=== PATIENT | male | born 1970 | race Caucasian/White ===

== ENCOUNTER 2025-06-02 09:09 | Outpatient (AMB) | payer BC, SELFPAY ==
--- NOTE | 2025-06-02 09:27 | MHC.PC.OV ---
Vital Signs 06/02/25 09:36 06/02/25 10:13 Height 5 ft 10 in Weight 158 lb BMI 22.7 BP 162/100 H 160/92 H Blood Pressure Location Rt brachial Position Sitting Pulse 88 Pulse Source Pulse Oximeter Temp 98.1 F Temp Source Temporal Artery Scan Pulse Oximetry (%) 98 Oxygen Delivery Method Room Air Intake Visit Reasons: Est. Care / Diabetic Intake Note: Abraham presents in the office today to establish care. Allergies Penicillins Allergy (Verified 06/02/25 09:29) Rash Tobacco use date assessed: 06/02/25 Dental Screening Dental Screen Date: 06/02/25 Did you have a dental visit in the last 12 months?: No Did you have a dental problem in the last 6 months where you did not have access to dental care?: No Was dental information given to patient?: Patient declined HPI HPI Comments History of Present Illness Details This is a 55 year old male with a pmhx of Type II Diabetes presenting to establish care. Medical records unavailable at this time. He is accompanied by his , Michaelle. They were in April. Type II DM-He was diagnosed after being hospitalized at [facility] for 13 days due to ?bacteremia in the setting of a right great toe infection after cutting his foot on glass. His A1C at diagnosis was 11.6%. He has been on Basaglar since that time and stopped drinking soda and eats heatlhy. He is currently on 12 units nightly, and his A1C is 7%. Past medications: none. His father had Type II DM. Patient reports he was tested for Type I DM, and this evaluation was negative. Denies hypoglycemia. He does not have a CGM, but he is not interested in this right now. He is compliant with glucose monitoring. He is a nonsmoker and doesn't drink alcohol. Complications: neuropathy in his feel. He sees podiatry, Dr. Pham. He just saw him due to an ulcer on the right foot. He is applying antibiotic ointment and bandaging this. Denies fevers, chills, drainage, swelling. He had an eye exam, and is was recommended that he see a retinal specialist for evaluation. Elevated blood pressure-denies history of hypertension. He thinks this may be related to anxiety as he drove through a lot of traffic to get here and had coffee this morning. He received the tetanus shot in May 2023. He declined Colonoscopy. Cologuard ordered. When we spoke about this he reported a 20 year history of dysphagia with starchy foods. He's never had an EGD. No progression of symptoms. Denies regurgitation, weight loss, nausea, vomiting. ROS: Constitutional: No unexplained weight loss, fever, chills, fatigue or night sweats. Eyes: No vision changes, blurry vision, double vision Respiratory: No shortness of breath, cough or sputum production. Cardiovascular: No chest pain, chest pressure or chest discomfort. No palpitations or pedal edema. Gastrointestinal: No anorexia, nausea, vomiting or diarrhea. No abdominal pain or blood in stool. Genitourinary: No dysuria, hematuria, urinary frequency. Neurologic: No headache, dizziness, syncope, unilateral weakness, ataxia or seizures. Skin: see HPI Endocrine: No cold or heat intolerance. No polyuria or polydipsia. Physical exam: Constitutional: Alert, in no distress. Neck: Supple, Full range of motion. No lymphadenopathy. No palpable thyroid masses. Respiratory: Clear to auscultation. Cardiovascular: S1 S2 regular. No murmurs. Gastrointestinal: Abdomen soft, non-tender, non-distended. Normal bowel sounds. No palpable masses. Neurologic: No focal neurological deficits. Extremities: Warm and well perfused. No clubbing, cyanosis or edema. Intact peripheral pulses bilaterally. Dime-sized stage 2/3 ulcer on the ball of the right foot superimposed on a callus. No discharge, edema or surrounding erythema to suggest cellulitis. [facility] Medical History (Updated 06/03/25 @ 19:21 by RONALD Roberson) Dysphagia Anemia Diabetic ulcer of right foot, limited to breakdown of skin Elevated blood pressure reading Controlled type 2 diabetes mellitus Amputated toe of right foot Diabetes Family History (Updated 06/02/25 @ 09:35 by Tori Mehta MA) Mother Lung cancer Father Diabetes Congestive heart failure FHx: mental illness Dementia Social History (Updated 06/02/25 @ 09:36 by Tori Mehta MA) Housing: House Alcohol intake: never Patient Tobacco Use Status: Never used Tobacco Tobacco use type: Smokeless Tobacco e-Cigarette/Vaping Use: Never Used Second Hand Smoke Exposure: No service: No Current occupational status: employed 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 1. Little interest or pleasure in doing things: not at all 2. Feeling down, depressed, or hopeless: not at all 3. Trouble falling or staying asleep, or sleeping too much: not at all 4. Feeling tired or having little energy: not at all 5. Poor appetite or overeating: not at all 6. Feeling bad about yourself - or that you are a failure or have let yourself or your family down: not at all 7. Trouble concentrating on things, such as reading the newspaper or watching television: not at all 8. Moving or speaking so slowly that other people could have noticed. Or the opposite - being so fidgety or restless that you have been moving around a lot more than usual: not at all 9. Thoughts that you would be better off or of hurting yourself in some way: not at all Total score: 0 Depression Screening Interpretation: Negative Depression Screening Done: Yes 67682 - PHQ-9 Billing: Yes Source: Developed by Drs. Ahmet Perez, Ijeoma Ramos, Niko Nguyen and colleagues, with an educational madison from [employer]. Thrive Questionnaire Date Thrive assessed: 06/02/25 I am a: Patient What is your living situation today?: I have a steady place to live Within the past 12 months, did the food you bought not last and you didn't have the money to get more?: Never true Within the past 12 months, did you worry whether your food would run out before you got money to buy more?: Never true Do you have trouble paying for medicines?: No Do you have trouble getting transportation to medical appointments?: No Do you have trouble paying your heating and electricity bill?: No Do you have trouble taking care of your child, family member or friend?: No Do you have trouble with day-to-day activities such as bathing, preparing meals, shopping, managing finances, etc.?: No Are you currently unemployed and looking for a job?: No Are you interested in more education?: No Please select the resources that you would like help with: None Currently or been in a relationship where the following occur: No concerns reported THRIVE Score: 0 AUDIT C Alcohol Use Questionnaire (AUDIT-C) 1. How often do you have a drink containing alcohol?: Never 3. How often do you have six or more drinks on one occasion?: Never Total Score: 0 MIRNA-7 AMB Questionnaire MIRNA-7 Date MIRNA - 7 assessed: 06/02/25 Feeling nervous, anxious, or on edge: 0 = Not at all Not being able to stop or control worryin = Not at all Worrying too much about different things: 0 = Not at all Trouble relaxin = Not at all Being so restless that it is hard to sit still: 0 = Not at all Becoming easily annoyed or irritable: 0 = Not at all Feeling afraid as if something awful might happen: 0 = Not at all Total MIRNA-7 score (0-4 normal; 5-9 mild; 10-14 moderate; 15-21 severe): 0 Source: Developed by Drs. Ahmet Perez, Ijeoma Ramos, Niko Nguyen and colleagues, with an educational madison from [employer]. MIRNA-7 Assessment Billing MIRNA-7 Assessment Tool: MIRNA-7 Assessment 20308 Physical exam (Primary Care) Vital Signs: Last Vital Signs Temp 98.1 F 06/02/25 09:36 Pulse 88 06/02/25 09:36 BP 160/92 H 06/02/25 10:13 Pulse Ox 98 06/02/25 09:36 Oxygen Delivery Method Room Air 06/02/25 09:36 BMI result Body Mass Index 22.7 Tobacco/Smoking Status: Tobacco use Status Tobacco use date assessed 06/02/25 06/02/25 09:41 Patient Tobacco Use Status Never used Tobacco 06/02/25 09:41 Tobacco use type Smokeless Tobacco 06/02/25 09:41 e-Cigarette/Vaping Use Never Used 06/02/25 09:41 PHQ-9: PHQ-9 Score PHQ-9: Total score 0 06/03/25 17:09 Depression Screening Interpretation: Negative Thrive Assessment: Date of Thrive Assessment Date Thrive assessed 06/02/25 06/02/25 09:29 Currently or been in a relationship where the following occur: No concerns reported Results AMB Hemoglobin A1c AMB Hemoglobin A1c 7.0 % Last Edit by Tori Mehta MA on 06/02/25 09:54 Results Reviewed Results Reviewed: Laboratory Last Values Hgb A1c (Clinic) 7.0 % (4.0-6.0) H 06/02/25 09:47 Coding Level of Care Code New Pt Level 4 (53956) Complex EM visit Add On G2211 Diagnoses Controlled type 2 diabetes mellitus E11.9 Elevated blood pressure reading R03.0 Diabetic ulcer of other part of right foot associated with type 2 diabetes mellitus, limited to breakdown of skin E11.621; L97.511 Diabetic foot ulcer location: other Diabetes mellitus type: type 2 Oropharyngeal dysphagia R13.12 Dysphagia type: oropharyngeal phase Additional Codes MIRNA-7 Assessment Billing - MIRNA-7 Assessment Tool: MIRNA-7 Assessment 79375 ([id number]) PHQ-9 - 96689 - PHQ-9 Billing: Yes ([id number]) Assessment & Plan Assessment & Plan (1) Controlled type 2 diabetes mellitus: Code(s): E11.9 - Type 2 diabetes mellitus without complications Category: Medical Plan: Discussed pathophysiology of Type II Diabetes Mellitus with the patient in detail.? I explained the terminal carman risks and complications associated with uncontrolled diabetes including nephropathy, neuropathy, peripheral vascular disease, retinopathy, increased risk of heart disease and stroke.? Discussed lifestyle modification with the patient. Recommended 30 minutes of moderately vigorous exercise 5 days per week to promote weight loss. Start Mounjaro 2.5 mg weekly and decrease Basalgar to 6 units daily. Plan to titrate Mounjaro and discontinue Basaglar at a future date. Denies contraindications to GLP1. Side effects reviewed. Declined CGM. Bring glucomter to appointments. Reviewed treatment of hypoglycemia. Glucose tablets prescribed. (2) Elevated blood pressure reading: Code(s): R03.0 - Elevated blood-pressure reading, without diagnosis of hypertension Category: Medical Plan: Recommended low sodium diet and avoidance of caffeine. Prescribed BP cuff. Bring log to next visit. (3) Diabetic ulcer of right foot, limited to breakdown of skin: Code(s): E11.621 - Type 2 diabetes mellitus with foot ulcer; L97.511 - Non-pressure chronic ulcer of other part of right foot limited to breakdown of skin Category: Medical Qualifiers: Diabetic foot ulcer location: other Diabetes mellitus type: type 2 Qualified Code(s): E11.621 - Type 2 diabetes mellitus with foot ulcer; L97.511 - Non-pressure chronic ulcer of other part of right foot limited to breakdown of skin Plan: He will schedule a follow up with podiatry. I referred him to Dr. 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 Continue dressing changes and application of antibiotic ointment. Monitor for signs of infection. Referred to the wound care clinic. (4) Dysphagia: Code(s): R13.10 - Dysphagia, unspecified Category: Medical Qualifiers: Dysphagia type: oropharyngeal phase Qualified Code(s): R13.12 - Dysphagia, oropharyngeal phase Plan: Referred to gastroenterology. Check labs. Plan Follow up in 1 month. Orders: Orders AMB Hemoglobin A1c 06/02/25 Z13.9 - Encounter for screening, unspecified TSH reflex Free T4 06/02/25 E11.9 - Type 2 diabetes mellitus without complications Prostate Specific Antigen 06/02/25 E11.9 - Type 2 diabetes mellitus without complications, Z12.5 - Encounter for screening for malignant neoplasm of prostate Comprehensive Met. Panel 06/02/25 E11.9 - Type 2 diabetes mellitus without complications Complete Blood Count no Diff 06/02/25 E11.9 - Type 2 diabetes mellitus without complications Lipid Panel 06/02/25 E11.9 - Type 2 diabetes mellitus without complications, E78.5 - Hyperlipidemia, unspecified Microalbumin, Random (w Creat) 06/02/25 E11.9 - Type 2 diabetes mellitus without complications Referrals Wound Care Referral E11.621 - Type 2 diabetes mellitus with foot ulcer, L97.511 - Non-pressure chronic ulcer of other part of right foot limited to breakdown of skin Podiatry Referral E11.621 - Type 2 diabetes mellitus with foot ulcer, E11.9 - Type 2 diabetes mellitus without complications, L97.511 - Non-pressure chronic ulcer of other part of right foot limited to breakdown of skin Cologuard Test Z12.11 - Encounter for screening for malignant neoplasm of colon Gastroenterology Referral D64.9 - Anemia, unspecified, R13.10 - Dysphagia, unspecified Medications: New insulin glargine (Basaglar KwikPen U-100 Insulin) 12 units (0.12 mL) subcut QPM 15 mL 2RF tirzepatide (Mounjaro) for 4 weeks 2.5 mg (0.5 mL) subcut QWEEK 2 mL 0RF pen needle, diabetic As directed 100 ea 2RF miscellaneous medical supply (Blood Pressure Cuff) As directed 1 ea 0RF R03.0 - Elevated blood-pressure reading, without diagnosis of hypertension glucose (Dex4 Glucose Quick Dissolve) until symptoms of low blood sugar are controlled 16 grams (4 x 4 gram) PO Q15M PRN 10 tabs 3RF hypoglycemia Patient Instructions: If you experience low blood sugar (<70), treat this by eating a chewable fruit candy like skittles or jelly beans (about 8 pieces), 4 ounces (1/2 cup) of fruit juice (not diet), 1 tablespoon of honey or 4 glucose tablets. If your blood sugar is under 55, take double the amount of one of the above. Recheck your blood sugar in 15 minutes. When you start Mounjaro 2.5 mg weekly, decrease insulin to 6 units nightly. If you have low blood sugars stop insulin.
--- OUTSIDE RECORDS SUMMARY | 2025-06-02 09:35 | XMS_ITS | Clinical Summary ---
Author Organization [facility] Address [address] [place] [address] Care Team Providers Care Facilities Officer Name Role Phone Ahmet Garcia MD Primary Care Provider [phone] Surgical History Surgery Date Site/Laterality Comments TOE AMPUTATION 06/03/2023 Right PROCEDURE:TOE AMPUTATION;COMMENT:Procedure: PARTIAL 1ST RAY AMPUTATION, I AND D; Surgeon: Carmelo Pham DPM; Location: [facility] MAIN OPERATING ROOM; Service: Podiatry; Laterality: Right; SAG SAW, MINI C ARM, 10MIN OSTECTOMY 06/12/2023 Right PROCEDURE:OSTECTOMY METATARSAL;COMMENT:Procedure: OSTECTOMY METATARSAL; Surgeon: Carmelo Pham DPM; Location: [facility] MAIN OPERATING ROOM; Service: Podiatry; Laterality: Right; SAG SAW, MINI C ARM, 15M Medical History Medical History Date Comments Diabetes mellitus (CMS/HCC V 24, CMS/HCC V28) 05/27/2023 DX:Diabetes mellitus (HCC) Seizures (CMS/HCC V24, CMS/HCC V28) DX:Seizures (HCC);COMMENT:06/09/23: over 12 years ago Visual impairment DX:Visual impa irment Diabetes mellitus, type II ( CMS/HCC V24, CMS/HCC V28) DX:Diabetes mellitus, type I I (HCC) Family History Medical History Relation Name Comments Diabetes Father Heart attack Father Kidney disease Father CKD Lung cancer Mother Relation Name Status Comments Father Alive Mother Social History Tobacco Use Types Packs/Day Years Used Date Smoking Tobacco: Former Smokeless Tobacco: Current Alcohol Use Standard Drinks/Week Comments Not Currently 0 (1 standard drink = 0.6 oz pur e alcohol) Sex and Gender Information Value Date Recorded Sex Assigned at Not on file Legal Sex Male 8:21 PM EST Gender Identity Not on file Sexual Orientation Not on file Obstetrics History Plan of Treatment Health Maintenance Due Date Last Done Comments Diabetes: Annual Foot Exam 1980 Diabetes: Annual Retina Eye Exam 1980 DTaP,Tdap,and Td Vaccines (1 - Tdap) 1989 Hepatitis B Vaccines (1 of 3 - 19+ 3-dose series) 1989 Pneumococcal Vaccine: 50+ Years (1 of 1 - PCV) 2020 Zoster Vaccines (1 of 2) 2020 Colorectal Cancer Screening: Colonoscopy 12/18/2023 Depression Screening 12/18/2023 HIV Screening 12/18/2023 Hepatitis C Screening 12/18/2023 Social Influencers of Health Screening 12/18/2023 Diabetes: Annual Urine Albumin-Creatinine Ratio (uACR) 01/08/2024 Diabetes: Blood Sugar Control Test (HGBA1C) 07/22/2024 01/22/2024, 01/22/2024, 07/31/2023, Additional history exists COVID-19 Vaccine ( - season) 2024 Diabetes: Annual GFR (Glomerular Filtration Rate) 01/21/2025 01/22/2024, 01/22/2024, 07/31/2023, Additional history exists Influenza Vaccine (#1) 2025 Cholesterol Screening (Lipid Panel) 01/21/2029 01/22/2024, 01/22/2024, 07/31/2023 HIB Vaccines Aged Out No longer eligi ble based on patient's age to complete this topic HPV Vaccines Aged Out No longer eligi ble based on patient's age to complete this topic Hepatitis A Vaccines Aged Out No long er eligible based on patient's age to complete this topic IPV Vaccines Aged Out No longer eligi ble based on patient's age to complete this topic MMR Vaccines Aged Out No longer eligi ble based on patient's age to complete this topic Meningococcal ACWY Vaccine Aged Out N o longer eligible based on patient's age to complete this topic Meningococcal B Vaccine Aged Out No l onger eligible based on patient's age to complete this topic RSV Immunization Patients Under 20 months Aged Out No longer eligible based on patient's age to complete this topic Varicella Vaccines Aged Out No longer eligible based on patient's age to complete this topic Medical Devices Implanted Type Area Civil Engineer'S Aide Device Identifier Shelf Expiration Date Model / Serial / Lot Hemostat Surg Ah Ana 3gm [id number] Implanted:Qty: 1 on 06/03/2023 by Carmelo Pham DPM Implants Right: Foot CR [employer]ARD - [employer] DIV [address]/21/[address] / / [id number] Care Teams Facilities Officer Relationship Specialty Start Date End Date Ahmet Garcia MD [address] [place] [address] PCP - General 06/12/23
--- OUTSIDE RECORDS SUMMARY | 2025-06-02 09:35 | XMS_ITS | Clinical Summary ---
Author Organization [facility] Address [address] [place] [address] Care Team Providers Care Oxidized Finish Plater Name Role Phone Ahmet Garcia MD Primary Care Provider Kirstie diaz Allergies Active Allergy Reactions Criticality Noted Date Comments Penicillins Hives 05/28/2023 Medications Medication Sig Dispensed Refills Start Date End Date Status Blood Glucose Monitoring Suppl (FreeStyle Lite) PITA Check your blood sugar at least twice a day. 1 each 0 06/05/2023 Active glucose blood (FREESTYLE LITE) test strip Check your blood sugar at least twice a day 100 each 5 06/05/2023 Active Lancets (freestyle) lancets Check your blood sugar at least twice a day 100 each 06/05/2023 Active oxyCODONE (ROXICODONE) 5 MG immediate release tablet Take 1 tablet (5 mg total) by mouth every 6 (six) hours as needed for up to 20 doses. 20 tablet 0 06/05/2023 Active Additional Information Patient not taking.Reason: Other, Reported on 06/09/2023 oxyCODONE-acetamino phen (PERCOCET) 5-325 MG per tablet Take 1 tablet by mouth every 4 (four) hours as needed for pain. 30 tablet 0 06/12/2023 Active Active Problems Problem Noted Date Diagnosed Date Open wound of right foot 06/06/2023 Overview: Added automatically from request for surgery [id number] Osteomyelitis of great toe of right foot 023 Osteomyelitis 05/31/2023 Gangrene 05/30/2023 Overview: Added automatically from request for surgery [id number] Acute osteomyelitis of right ankle or foot 05/30 Overview: Added automatically from request for surgery [id number] Cellulitis of right foot 05/27/2023 Diabetes mellitus, new onset 05/27/2023 Sepsis 05/27/2023 Family History Medical History Relation Name Comments Diabetes Father Heart attack Father Kidney disease Father CKD Lung cancer Mother Relation Name Status Comments Father Alive Mother Social History Tobacco Use Types Packs/Day Years Used Date Smoking Tobacco: Former Cigarettes Passive Smoke Exposure: Never Smokeless Tobacco: Current Chew Tobacco Cessation:Ready to Q uit: Not Asked; Counseling Given: Not Answered Alcohol Use Standard Drinks/Week Comments Not Currently 0 (1 standard drink = 0.6 oz pur e alcohol) sober since 2010 Sex and Gender Information Value Date Recorded Sex Assigned at Male 05/27/2023 11:12 AM EDT Gender Identity Not on file Sexual Orientation Not on file Job Start Date Occupation Industry Not on file Not on file Not on file Last Filed Vital Signs Vital Sign Reading Time Taken Comments Blood Pressure 169/94 06/12/2023 12:36 PM EDT Pulse 84 06/12/2023 12:36 PM EDT Temperature 36.2 C (97.1 F) 06/12/2023 12:26 PM EDT Respiratory Rate 16 06/12/2023 12:36 PM EDT Oxygen Saturation 99% 06/12/2023 12:36 PM EDT Inhaled Oxygen Concentration - - Weight 65.8 kg (145 lb) 06/09/2023 1:46 PM EDT Height 172.7 cm (5' 8 ) 06/09/2023 1:46 PM EDT Body Mass Index 22.05 06/09/2023 1:46 PM EDT Plan of Treatment Health Maintenance Due Date Last Done Comments Hepatitis B Vaccines (1 of 3 - 3-dose series) 1970 Hepatitis C Screening 1970 COVID-19 Vaccine (#1) 1970 Pneumococcal Vaccine (1 of 2 - PCV) 1976 Depression Screening 1982 Preventative Health Evaluation 1988 DTap / Tdap / Td (1 - Tdap) 1989 Colon Cancer Screening (Colonoscopy) 2015 Shingrix-Zoster Vaccine (1 of 2) 2020 Influenza Vaccine (#1) 2025 RSV Ped < 20 months Aged Out No longe r eligible based on patient's age to complete this topic Medical Devices Implanted Type Area Molded Rubber Goods Cutter Device Identifier Shelf Expiration Date Model / Serial / Lot Hemostat Surg Ah Ana 3gm [id number] - [id number] Implanted:Qty : 1 on 06/03/2023 by Carmelo Pham DPM at [facility] Hemostatic Agent Right: Foot [employer] 01/21/2028 [id number] / / [id number] Advance Directives For more information, please contact: [phone] Latest Code Status on File Code Status Date Activated Date Inactivated Comments Full Code 06/12/2023 8:46 AM 06/12/2023 7:04 PM This code status was ascertained in the following way: discussion with patient . Code Status History Code Status Date Activated Date Inactivated Comments Full Code 05/30/2023 7:47 PM 06/05/2023 11:34 PM This code status was ascertained in the following way: discussion with patient . Full Code 05/27/2023 5:50 PM 05/30/2023 6:54 PM This co de status was ascertained in the following way: discussion with patient. Care Teams Oxidized Finish Plater Relationship Specialty Start Date End Date hAmet Garcia MD PCP - General Family Medicine 06/12/23
[2025-06-02 09:36] VITALS: BP 162/100; PULSE 88; TEMP 36.7; O2SAT 98; BMI 22.7
[2025-06-02 10:13] VITALS: BP 160/92
== END 2025-06-02 10:26 | disposition home or self-care (01) ==
LOC: HO.HMCFM 09:10
PROVIDERS: PCP Family Medicine; Visit Provider Physician Assistant Medical
DX: Z13.9 Encounter for screening, unspecified (principal)

== ENCOUNTER → 2025-06-02 09:09 | Outpatient (BNVA) | payer BC, SELFPAY | PROVIDERS: PCP Family Medicine; Visit Provider Physician Assistant Medical | DX: E11.621 Type 2 diabetes mellitus with foot ulcer (principal); L97.511 Non-pressure chronic ulcer of other part of right foot limited to breakdown of skin; R03.0 Elevated blood-pressure reading, without diagnosis of hypertension; R13.12 Dysphagia, oropharyngeal phase; Z79.4 Long term (current) use of insulin | CPT/HCPCS: 83036; 96127 ==

== ENCOUNTER 2025-06-02 10:46 | Outpatient (REF) | payer BC, SELFPAY ==
--- OUTSIDE RECORDS SUMMARY | 2025-06-02 11:27 | XMS_ITS ---
Author Name [facility] Organization Unknown Results Test Name/Text Value Interpretation Date Range Source LDLc SerPl Calc-mCnc 75.0 mg/dL Normal 01/22/2024 50 - 13 0 [facility] CHOLEST SERPL-MCNC 135.0 mg/dL Normal 01/22/2024 0 - 200 [facility] TRIGL SERPL-MCNC 86.0 mg/dL Normal 01/22/2024 - 150 C [facility] HDLC SERPL-MCNC 43.0 mg/dL Normal 01/22/2024 32 - 70 [facility] Hgb A1c MFr Bld HPLC 7.0 % Above high normal 01/22/2024 - 5.7 [facility] CALCIUM SERPL MCNC 10.2 mg/dL Normal 01/22/2024 8.4 - 10. 2 [facility] AST SERPL CCNC 18.0 U/L Normal 01/22/2024 5 - 40 [facility] BUN SERPL MCNC 35.0 mg/dL Above high normal 01/22/2024 9 - 2 0 [facility] ALBUMIN SERPL BCG MCNC 4.8 g/dL Normal 01/22/2024 3.5 - 5 [facility] ALT SERPL CCNC 14.0 U/L Normal 01/22/2024 7 - 52 [facility] BILIRUB SERPL MCNC 0.4 mg/dL Normal 01/22/2024 0.3 - 1 [facility] GLUCOSE P FAST SERPL MCNC 185.0 mg/dL Above high normal 01/22/2024 70 - 99 [facility] ANION GAP SERPL SCNC 11.0 mmol/L Normal 01/22/2024 5 - 14 [facility] SODIUM SERPL SCNC 136.0 mmol/L Normal 01/22/2024 135 - 14 5 [facility] PROT SERPL MCNC 8.0 g/dL Normal 01/22/2024 6.4 - 8.5 [facility] POTASSIUM SERPL SCNC 4.3 mmol/L Normal 01/22/2024 3.5 - 5 .1 [facility] CREAT SERPL MCNC 1.6 mg/dL Above high normal 01/22/2024 0.7 - 1.3 [facility] CHLORIDE SERPL SCNC 101.0 mmol/L Normal 01/22/2024 98 - 1 07 [facility] HCO3 SER SCNC 24.0 mmol/L Normal 01/22/2024 24 - 32 [facility] Glomerular filtration rate/1.73 sq M. predicted 51.0 Below low normal 01/22/2024 60 - [facility] ALP SERPL-CCNC 49.0 U/L Normal 01/22/2024 34 - 104 [facility] Allergies Allergen Reaction Severity Comment Documented Date Source Statu s PENICILLINS HIVES 05/28/2023 [facility] active Problems Problem Status Onset Date Problem Type Date of Resolution Source Diabetes mellitus, new onset active 2023-05-27 ProblemAct [facility] Cellulitis of right foot active 2023-05-27 ProblemAct [facility] Type 2 diabetes mellitus with diabetic neuropathy, unspecified (HCC) active EncounterDiagnosisAct C [facility] Osteomyelitis of great toe of right foot active 2023-06-01 ProblemAct [facility] Gangrene active 2023-05-30 ProblemAct [facility] Sepsis active 2023-05-27 ProblemAct [facility] Open wound of right foot active 2023-06-06 ProblemAct [facility] Type 2 diabetes mellitus with hyperglycemia (HCC) active EncounterDiagnosisAct [facility] Acute osteomyelitis of right ankle or foot active 2023-05-30 ProblemAct [facility] Encounters Encounter Type Encounter Reason Primary Diagnosis Location Date Ambulatory [facility], [facility] 03/04/2025 Ambulatory [facility], [facility] 02/25/2025 Ambulatory [facility], [facility] 02/20/2025 Ambulatory Type 2 diabetes mellitus with hyperglycemia Type 2 diabetes mellitus with hyperglycemia [facility] 01/22/2024 Ambulatory Type 2 diabetes mellitus with hyperglycemia Type 2 diabetes mellitus with hyperglycemia [facility] 07/31/2023 Ambulatory Unspecified open wound, right foot, subsequent encounter Unspecified open wound, right foot, subsequent encounter [facility] 06/12/2023 Inpatient Gangrene, not elsewhere classified Gangrene, not elsewhere classified [facility] 05/30/2023 Inpatient Cellulitis of right lower limb Cellulitis of right lower limb [facility] 05/27/2023 Care Team Organization Name Specialty Phone Email Start Date End Bryant whipple [facility], [facility] 02/22/2025 [facility] Ahmet Garcia Primary Care 05/202307/31/2023 [facility] 3 05/30/2023 [facility] 05/30/2023 [facility] 05/27/2023 070 02/2023
[2025-06-02 16:25] LABS: Hematocrit 31.2 % (42.0-52.0); Hemoglobin 10.8 g/dl (14.0-18.0); Mean Corpuscular HGB Conc 34.6 g/dl (31.0-36.0); Mean Corpuscular Hemoglobin 31.2 pg (27.0-33.0); Mean Corpuscular Volume 90.2 fL (80.0-98.0); NRBC Abs Auto 0.000 X10*3/uL (0.0-0.012); NRBC Pct Auto 0.0 /100WBC (0.0-0.2); Platelet Count 302 X10*3/uL (160-400); Red Blood Count 3.46 X10*6/uL (4.60-5.80); White Blood Count 7.9 X10*3/uL (4.8-10.8)
[2025-06-02 16:33] LABS: Prostate Specific Antigen 1.36 ng/mL (<0.05-4.0)
[2025-06-02 16:52] LABS: Alanine Aminotransferase 19 U/L (0-40); Albumin Level 4.1 g/dL (3.5-5.0); Alkaline Phosphatase 75 U/L (39-117); Anion Gap 13 (12-20); Aspartate Amino Transferase 32 U/L (5-37); Blood Urea Nitrogen 21 mg/dL (9-16); Calcium 9.2 mg/dL (8.4-10.2); Carbon Dioxide 24 mmol/L (22-29); Chloride 107 mmol/L (96-108); Cholesterol 159 mg/dL (<200); Estimated Glomerular Filt Rate > 60; HDL Cholesterol 41 mg/dL (>40); Potassium 4.5 mmol/L (3.3-5.1); Sodium 139 mmol/L (135-145); Total Protein 7.4 g/dL (6.5-8.0); Triglycerides 68 mg/dL (<150)
[2025-06-02 17:05] LABS: Microalbum/Creatinine Ratio Ur 1233.6 ug/mg cr (<30)
== END 2025-06-02 10:47 | disposition home or self-care (01) ==
LOC: HO.WFDLDS 10:46
PROVIDERS: Visit Provider Physician Assistant Medical
DX: E11.9 Type 2 diabetes mellitus without complications (principal); E78.5 Hyperlipidemia, unspecified; Z13.9 Encounter for screening, unspecified; Z12.5 Encounter for screening for malignant neoplasm of prostate
CPT/HCPCS: 36415; 80053; 80061; 82043; 82570; 84153; 84443; 85027

== ENCOUNTER 2025-07-14 14:50 | Outpatient (AMB) | payer BC, SELFPAY ==
--- OUTSIDE RECORDS SUMMARY | 2025-07-14 14:54 | XMS_ITS | Encounter Summary ---
Author Organization [facility] Address [address] [place] [address] Care Team Providers Care Mountain Bike Guide Name Role Phone DontrellKeara barrios Helen CARDENAS Primary Care Provider [phone] Reason for Visit * Reason Onset Date Comments information needed 07/08/2025 Encounter Details Date Type Department Care Team ([facility] Contact Info) Description 07/08/2025 Telephone Gastroenterology - [place] [address] [facility] [address] [facility] [address] [place] [address] Be Mariano MD [address] [facility] [address] [place] [address] information needed Social History Tobacco Use Types Packs/Day Years Used Date Smoking Tobacco: Former Smokeless Tobacco: Current Alcohol Use Standard Drinks/Week Comments Not Currently 0 (1 standard drink = 0.6 oz pur e alcohol) Sex and Gender Information Value Date Recorded Sex Assigned at Not on file Legal Sex Male 8:21 PM EST Gender Identity Not on file Sexual Orientation Not on file documented as of this encounter Progress Notes * Shantal Garcia - 07/13/2025 1:45 PM EDT Records received, still missing insurance referral. Faxed & placed in missing folder. * Jada Brambila - 07/08/2025 1:09 PM EDT Received referral from [facility] for a colonoscopy, but only a positive cologuard report was received. Missing last OV notes, allergy list & med list. Faxed back to office and placed in MISSING accordion folder documented in this encounter Plan of Treatment Not on file documented as of this encounter Visit Diagnoses Not on filedocumented in this encounter Care Teams Mountain Bike Guide Relationship Specialty Start Date End Date Keara Jon PA [address] [place] [address] PCP - General Physician Handle Rounder Operator 06/16/25 documented as of this encounter
--- OUTSIDE RECORDS SUMMARY | 2025-07-14 14:54 | XMS_ITS | Clinical Summary ---
Author Organization [facility] Address [address] [place] [address] Care Team Providers Care Video Coordinator Name Role Phone Ahmet Garcia MD Primary [...] Overview: Added automatically from request for surgery [id number] Osteomyelitis of great toe of right foot 023 Osteomyelitis 05/31/2023 Gangrene 05/30/2023 Overview: Added automatically from request for surgery [id number] Acute osteomyelitis of right ankle or foot 05/30 Overview: Added automatically from request for surgery [id number] Cellulitis of right foot 05/27/2023 Diabetes mellitus, [...] this topic Medical Devices Implanted Type Area Linux Kernel Developer Device Identifier Shelf Expiration Date Model / Serial / Lot Hemostat Surg Ah Ana 3gm Crba-Davl [id number] - [id number] Implanted:Qty : 1 on 06/03/2023 by Carmelo Pham DPM at [facility] and Med Hemostatic Agent Right: Foot CR BARD - DAVOL DIV 01/21/2028 [id number] / / [id number] Advance Directives For more information, please contact: [phone] Latest Code Status on File Code Status [...] following way: discussion with patient. Care Teams Video Coordinator Relationship Specialty Start Date End Date Ahmet Garcia MD PCP - General Family Medicine 06/12/23
--- NOTE | 2025-07-14 15:10 | A.OFFPC_ITS ---
Vital Signs 07/14/25 15:18 07/14/25 15:45 07/14/25 16:03 Height 5 ft 10 in Weight 162 lb 4 oz BMI 23.3 BP 190/90 H 190/90 H 179/88 H Blood Pressure Location Lt brachial Lt brachial Position Sitting Sitting Pulse 88 Pulse Source Pulse Oximeter Temp 98.3 F Temp Source Temporal Artery Scan Pulse Oximetry (%) 100 Oxygen Delivery Method Room Air Intake Visit Reasons: DM follow up Intake Note: Abraham presents in the office today for a follow up to his diabetes. Allergies Penicillins Allergy (Verified 07/14/25 15:16) Rash lisinopril Adverse Reaction (Intermediate, Verified 07/14/25 15:16) Cough Medication List - Last Reconciled 07/15/25 by RONALD Roberson ferrous sulfate 325 mg PO DAILY glucose (Dex4 Glucose Quick Dissolve) 16 grams (4 x 4 gram) PO Q15M PRN insulin glargine (Lantus Solostar U-100 Insulin) 12 units subcut QPM losartan 25 mg PO DAILY miscellaneous medical supply (Blood Pressure Cuff) As directed pen needle, diabetic As directed pen needle, diabetic As directed rosuvastatin 10 mg PO BEDTIME tirzepatide (Mounjaro) 2.5 mg (0.5 mL) subcut QWEEK Tobacco use date assessed: 07/14/25 Dental Screening Dental Screen Date: 07/14/25 Did you have a dental visit in the last 12 months?: No Did you have a dental problem in the last 6 months where you did not have access to dental care?: No Was dental information given to patient?: Patient declined HPI HPI Comments History of Present Illness Details This is a 55 year old male with a pmhx of Type II Diabetes presenting for follow up. He is accompanied by his , Michaelle. Type II DM- Taking Lantus 12 units daily. Hemoglobin A1c is 7% 06/02/2025. Mounjaro prescribed, and it was approved, but the pharmacy needs a new prescription. He has not been able to start it yet. He was diagnosed after being hospitalized at [facility] for 13 days due to ?bacteremia in the setting of a right great toe infection after cutting his foot on glass. His A1C at diagnosis was 11.6%. His father had Type II DM. Patient reports he was tested for Type I DM, and this evaluation was negative. Denies hypoglycemia. He does not have a CGM, but he is not interested in this right now. He is compliant with glucose monitoring. He is a nonsmoker and doesn't drink alcohol. Complications: neuropathy in his feel. He sees podiatry, Dr. Pham. He just saw him due to an ulcer on the right foot. He is applying antibiotic ointment and bandaging this. Denies fevers, chills, drainage, swelling. He had an eye exam, and is was recommended that he see a retinal specialist for evaluation. I referred him to Wound Care, and he needs to return their phone call to set up the appointment. Patient has microalbuminuria. Elevated blood pressure-denies history of hypertension. Patient feels anxious today as we are discussing abnormal results including Cologuard. They started monitoring blood pressure at home, and the readings were under 130/90 most of the time. BP initially 190/90 today and decrease to 179/88. Denies headache, chest pain, dizziness, vision changes, leg swelling. He started lisinopril, but it was discontinued due to cough. He has not started losartan yet, but he is going to pick it up today. Anemia-found incidentally on blood work. Reported 20 year history of dysphagia with starchy foods at his initial visit. He has never had an EGD, and he was due for colonoscopy. Denied progressively worsening dysphagia, regurgitation, weight loss, nausea or vomiting. Endorses chronic cough after eating. Subsequently patient has positive Cologuard testing, and he was referred urgently to [facility], but after 6 phone call attempts he has not been able to schedule a visit. ROS: Constitutional: No unexplained weight loss, fever, chills, fatigue or night sweats. Eyes: No vision changes, blurry vision, double vision Respiratory: No shortness of breath or sputum production Cardiovascular: No chest pain, chest pressure or chest discomfort. No palpitations or pedal edema. Gastrointestinal: No anorexia, nausea, vomiting or diarrhea. No abdominal pain or blood in stool. Genitourinary: No dysuria, hematuria, urinary frequency. Neurologic: No headache, dizziness, syncope, unilateral weakness, ataxia or seizures. Skin: see HPI Endocrine: No cold or heat intolerance. No polyuria or polydipsia. Physical exam: Constitutional: Alert, in no distress. Neck: Supple, Full range of motion. No lymphadenopathy. No palpable thyroid masses. Respiratory: Clear to auscultation. Cardiovascular: S1 S2 regular. No murmurs. Gastrointestinal: Abdomen soft, non-tender, non-distended. Normal bowel sounds. No palpable masses. Neurologic: No focal neurological deficits. Extremities: Warm and well perfused. No clubbing, cyanosis or edema. Intact peripheral pulses bilaterally. Dime-sized stage 2/3 ulcer on the ball of the right foot superimposed on a callus. No discharge, edema or surrounding erythema to suggest cellulitis. [facility] Medical History (Updated 07/15/25 @ 16:50 by RONALD Roberson) Positive colorectal cancer screening using Cologuard test Pure hypercholesterolemia Microalbuminuria Dysphagia Anemia Diabetic ulcer of right foot, limited to breakdown of skin Elevated blood pressure reading Controlled type 2 diabetes mellitus Amputated toe of right foot Diabetes Family History Mother Lung cancer Father Diabetes Congestive heart failure FHx: mental illness Dementia Social History (Updated 07/14/25 @ 15:18 by Tori Mehta MA) Housing: House Alcohol intake: never Patient Tobacco Use Status: Never used Tobacco Tobacco use type: Smokeless Tobacco e-Cigarette/Vaping Use: Never Used Second Hand Smoke Exposure: No service: No Current occupational status: employed 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 [employer] Current occupational exposures/hazards: No Cognitive needs: No Hearing needs: No Vision needs: No Questionnaire Thrive Questionnaire Date Thrive assessed: 06/02/25 I am a: Patient What is your living situation today?: I have a steady place to live Within the past 12 months, did the food you bought not last and you didn't have the money to get more?: Never true Within the past 12 months, did you worry whether your food would run out before you got money to buy more?: Never true Do you have trouble paying for medicines?: No Do you have trouble getting transportation to medical appointments?: No Do you have trouble paying your heating and electricity bill?: No Do you have trouble taking care of your child, family member or friend?: No Do you have trouble with day-to-day activities such as bathing, preparing meals, shopping, managing finances, etc.?: No Are you currently unemployed and looking for a job?: No Are you interested in more education?: No Please select the resources that you would like help with: None Currently or been in a relationship where the following occur: No concerns reported THRIVE Score: 0 AUDIT C Alcohol Use Questionnaire (AUDIT-C) 3. How often do you have six or more drinks on one occasion?: Never Total Score: 0 MIRNA-7 AMB Questionnaire MIRNA-7 Date MIRNA - 7 assessed: 06/02/25 Source: Developed by Drs. Ahmet Perez, Ijeoma Ramos, Niko Nguyen and colleagues, with an educational madison from [employer]. Physical exam (Primary Care) Vital Signs: Last Vital Signs Temp 98.3 F 07/14/25 15:18 Pulse 88 07/14/25 15:18 BP 179/88 H 07/14/25 16:03 Pulse Ox 100 07/14/25 15:18 Oxygen Delivery Method Room Air 07/14/25 15:18 BMI result Body Mass Index 23.3 Tobacco/Smoking Status: Tobacco use Status Tobacco use date assessed 07/14/25 07/14/25 15:22 Patient Tobacco Use Status Never used Tobacco 07/14/25 15:18 Tobacco use type Smokeless Tobacco 07/14/25 15:18 e-Cigarette/Vaping Use Never Used 07/14/25 15:18 Thrive Assessment: Date of Thrive Assessment Date Thrive assessed 06/02/25 07/14/25 15:12 Currently or been in a relationship where the following occur: No concerns reported Results Reviewed Results Reviewed: Laboratory Tests 06/02/25 06/02/25 06/02/25 09:47 10:49 10:56 WBC 7.9 RBC 3.46 L Hgb 10.8 L Hct 31.2 L Plt Count 302 Creatinine 1.18 Estimated GFR > 60 Hgb A1c (Clinic) 7.0 H AST 32 ALT 19 Triglycerides 68 Cholesterol 159 LDL Cholesterol, Calc 105 H HDL Cholesterol 41 Prostate Specific Ag 1.36 TSH 0.69 Urine Creatinine 43.69 Urine Microalbumin 539.0 Microalb/Creat Ratio 1233.6 H Coding Level of Care Code Est Pt Level 4 (51846) Complex EM visit Add On G2211 Diagnoses Controlled type 2 diabetes mellitus E11.9 Elevated blood pressure reading R03.0 Diabetic ulcer of other part of right foot associated with type 2 diabetes mellitus, limited to breakdown of skin E11.621; L97.511 Diabetic foot ulcer location: other Diabetes mellitus type: type 2 Oropharyngeal dysphagia R13.12 Dysphagia type: oropharyngeal phase Anemia D64.9 Anemia type: iron deficiency Positive colorectal cancer screening using Cologuard test R19.5 Pure hypercholesterolemia E78.00 Assessment & Plan Assessment & Plan (1) Controlled type 2 diabetes mellitus: Code(s): E11.9 - Type 2 diabetes mellitus without complications Category: Medical Plan: Discussed pathophysiology of Type II Diabetes Mellitus with the patient in detail.? I explained the termite control service representative risks and complications associated with uncontrolled diabetes including nephropathy, neuropathy, peripheral vascular disease, retinopathy, increased risk of heart disease and stroke.? Discussed lifestyle modification with the patient. Recommended 30 minutes of moderately vigorous exercise 5 days per week to promote weight loss. Start Mounjaro 2.5 mg weekly and decrease Lantus to 6 units daily. Plan to titrate Mounjaro and discontinue Basaglar at a future date. Denies contraindications to GLP1. Side effects reviewed. Declined CGM. Bring glucomter to appointments. Reviewed treatment of hypoglycemia. (2) Elevated blood pressure reading: Code(s): R03.0 - Elevated blood-pressure reading, without diagnosis of hypertension Category: Medical Plan: Patient endorses anxiety. Recommended low sodium diet and avoidance of caffeine. Bring BP log to next visit. Start losartan 25 mg daily. (3) Diabetic ulcer of right foot, limited to breakdown of skin: Code(s): E11.621 - Type 2 diabetes mellitus with foot ulcer; L97.511 - Non-pressure chronic ulcer of other part of right foot limited to breakdown of skin Category: Medical Qualifiers: Diabetic foot ulcer location: other Diabetes mellitus type: type 2 Qualified Code(s): E11.621 - Type 2 diabetes mellitus with foot ulcer; L97.511 - Non-pressure chronic ulcer of other part of right foot limited to breakdown of skin Plan: He will schedule a follow up with podiatry. I referred him to Dr. 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 Continue dressing changes and application of antibiotic ointment. Monitor for signs of infection. Call [facility] back to schedule visit. (4) Dysphagia: Code(s): R13.10 - Dysphagia, unspecified Category: Medical Qualifiers: Dysphagia type: oropharyngeal phase Qualified Code(s): R13.12 - Dysphagia, oropharyngeal phase (5) Anemia: Code(s): D64.9 - Anemia, unspecified Category: Medical Qualifiers: Anemia type: iron deficiency (6) Positive colorectal cancer screening using Cologuard test: Code(s): R19.5 - Other fecal abnormalities Category: Medical Plan: Patient is referred urgently to [facility] today for consideration of EGD and colonoscopy. Recheck labs for anemia. Start iron if indicated. Check pancreatic enzymes. Warning signs warranting ER evaluation reviewed with the patient. Avoid NSAIDs and aspirin. (7) Pure hypercholesterolemia: Code(s): E78.00 - Pure hypercholesterolemia, unspecified Category: Medical Plan: Reviewed LDL goal with the patient. Start rosuvastatin 10 mg at bedtime. Side effects and administration reviewed. Plan Follow up in 2-3 weeks for recheck. Orders: Orders Lipase Today D64.9 - Anemia, unspecified, E11.9 - Type 2 diabetes mellitus without complications Amylase Today D64.9 - Anemia, unspecified, E11.9 - Type 2 diabetes mellitus without complications Referrals Gastroenterology Referral D64.9 - Anemia, unspecified, R13.12 - Dysphagia, oropharyngeal phase, R19.5 - Other fecal abnormalities Medications: New rosuvastatin 10 mg PO BEDTIME 90 tabs 3RF Changed From insulin glargine (Lantus Solostar U-100 Insulin) 6 units (0.06 mL) subcut QPM 3 mL 3RF To insulin glargine (Lantus Solostar U-100 Insulin) 12 units subcut QPM Refilled tirzepatide (Mounjaro) for 4 weeks 2.5 mg (0.5 mL) subcut QWEEK 2 mL 0RF
[2025-07-14 15:18] VITALS: BP 190/90; PULSE 88; TEMP 36.8; O2SAT 100; BMI 23.3
[2025-07-14 15:45] VITALS: BP 190/90
[2025-07-14 16:03] VITALS: BP 179/88
== END 2025-07-14 16:09 | disposition home or self-care (01) ==
LOC: HO.HMCFM 14:51
PROVIDERS: PCP Physician Assistant Medical; Visit Provider Physician Assistant Medical
DX: R03.0 Elevated blood-pressure reading, without diagnosis of hypertension (principal); E11.621 Type 2 diabetes mellitus with foot ulcer; L97.511 Non-pressure chronic ulcer of other part of right foot limited to breakdown of skin; R13.12 Dysphagia, oropharyngeal phase; D64.9 Anemia, unspecified; R19.5 Other fecal abnormalities; E78.00 Pure hypercholesterolemia, unspecified

== ENCOUNTER 2025-07-15 12:32 | Outpatient (REF) | payer BC, SELFPAY ==
--- OUTSIDE RECORDS SUMMARY | 2025-07-15 12:34 | XMS_ITS | Encounter Summary ---
Author Organization [facility] Address [address] [place] [address] Care Team Providers Care Life Skills Worker Name Role Phone DontrellKeara barrios Helen CARDENAS Primary Care Provider [phone] Reason for Visit * Reason Onset Date Comments information needed 07/08/2025 Encounter Details Date Type Department Care Team ([facility] Contact Info) Description 07/08/2025 Telephone Gastroenterology - [place] [address] [facility] [address] [facility] [address] [place] [address] Be Mariano MD [address] [place] [address] information needed Social History Tobacco Use Types [...] 07/08/2025 1:09 PM EDT Received referral from [facility] for a colonoscopy, but only a positive cologuard report was received. Missing last OV notes, allergy list & med list. Faxed back to office and placed in MISSING accordion folder documented in this encounter Plan of Treatment Not on file documented as of this encounter Visit Diagnoses Not on filedocumented in this encounter Care Teams Life Skills Worker Relationship Specialty Start Date End Date Keara Jon PA [address] [place] [address] PCP - General Physician Concrete Inspector 06/16/25 documented as of this encounter
--- OUTSIDE RECORDS SUMMARY | 2025-07-15 12:34 | XMS_ITS | Clinical Summary ---
Author Organization [facility] Address [address] [place] [address] Care Team Providers Care Database Security Expert Name Role Phone Ahmet Garcia MD Primary [...] Overview: Added automatically from request for surgery [id number] Osteomyelitis of great toe of right foot 023 Osteomyelitis 05/31/2023 Gangrene 05/30/2023 Overview: Added automatically from request for surgery [id number] Acute osteomyelitis of right ankle or foot 05/30 Overview: Added automatically from request for surgery [id number] Cellulitis of right foot 05/27/2023 Diabetes mellitus, [...] this topic Medical Devices Implanted Type Area Autocad Draftsman Device Identifier Shelf Expiration Date Model / Serial / Lot Hemostat Surg Ah Ana 3gm Crba-Davl [id number] - [id number] Implanted:Qty : 1 on 06/03/2023 by Carmelo Pham DPM at [facility] and Med Hemostatic Agent Right: Foot CR BARD - DAVOL DIV 01/21/2028 [id number] / / [id number] Directives For more information, please contact: [phone] Latest Code Status on File Code Status [...] following way: discussion with patient. Care Teams Database Security Expert Relationship Specialty Start Date End Date Ahmet Garcia MD PCP - General Family Medicine 06/12/23
[2025-07-15 16:03] LABS: MANUAL DIFF FLAG NO
[2025-07-15 16:13] LABS: Hematocrit 28.4 % (42.0-52.0); Hemoglobin 9.3 g/dl (14.0-18.0); Imm Gran Abs Auto 0.03 X10*3/uL (0.00-0.03); Imm Gran Pct Auto 0.3 % (0.0-0.4); Lymphocytes Absolute Auto 1.9 X10*3/uL (1.2-4.9); Mean Corpuscular HGB Conc 32.7 g/dl (31.0-36.0); Mean Corpuscular Hemoglobin 30.3 pg (27.0-33.0); Mean Corpuscular Volume 92.5 fL (80.0-98.0); NRBC Abs Auto 0.000 X10*3/uL (0.0-0.012); NRBC Pct Auto 0.0 /100WBC (0.0-0.2); Platelet Count 392 X10*3/uL (160-400); Red Blood Count 3.07 X10*6/uL (4.60-5.80); White Blood Count 10.6 X10*3/uL (4.8-10.8)
[2025-07-15 16:31] LABS: Amylase 43 U/L (28-100); Iron 40 mcg/dL (45-160); Lipase 17 U/L (8-78); Percent Iron Saturation 21 % (15-50); Total Iron Binding Capacity 189 mcg/dL (228-428); Unsaturated Iron Binding 149 ug/dL
[2025-07-15 16:51] LABS: Ferritin 167 ng/mL (20-250)
[2025-07-15 17:09] LABS: Folate 9.3 ng/mL (> or = 4.0); Vitamin B12 308 pg/mL (200-900)
== END 2025-07-15 12:33 | disposition home or self-care (01) ==
LOC: HO.WFDLDS 12:32
PROVIDERS: Visit Provider Physician Assistant Medical
DX: E11.9 Type 2 diabetes mellitus without complications (principal); E78.00 Pure hypercholesterolemia, unspecified; D64.9 Anemia, unspecified; R80.9 Proteinuria, unspecified
CPT/HCPCS: 82150; 82607; 82728; 82746; 83540; 83690; 85025

== ENCOUNTER 2025-07-28 13:30 | Outpatient (AMB) | payer BC, SELFPAY ==
--- NOTE | 2025-07-28 13:36 | A.OFFVIS_ITS ---
Vital Signs 07/28/25 13:41 Height 5 ft 10 in Weight 152 lb 1.903 oz BMI 21.8 BP 204/92 H Blood Pressure Location Lt brachial Position Sitting Pulse 96 Intake Visit Reasons: dysphagia/worsening anemia per pcp Intake Note: Abraham presents in the office as a new patient for Worsening Anemia. CC: States that he was coughing and he thinks it was the lisinipril. It runs in the family that when he eats starch he coughs and sneezes. It has gotten better since started the losartan. Data Conversion Operator Required: No Allergies Penicillins Allergy (Verified 07/28/25 13:42) Rash lisinopril Adverse Reaction (Intermediate, Verified 07/28/25 13:42) Cough Medication List - Last Reconciled 07/28/25 by Meggan Nguyễn CNP ferrous sulfate 325 mg PO DAILY glucose (Dex4 Glucose Quick Dissolve) 16 grams (4 x 4 gram) PO Q15M PRN insulin glargine (Lantus Solostar U-100 Insulin) 6 units subcut QPM losartan 25 mg PO DAILY miscellaneous medical supply (Blood Pressure Cuff) As directed pen needle, diabetic As directed pen needle, diabetic As directed rosuvastatin 10 mg PO BEDTIME tirzepatide (Mounjaro) 2.5 mg (0.5 mL) subcut QWEEK HPI HPI dysphagia/worsening anemia per pcp: Details: Patient is a 55-year-old male with PMH of diabetes, hyperlipidemia and AZAEL. Referred by PCP for positive Cologuard The patient presents due to a positive Cologuard test on June 27, 2025. The patient reports no current gastrointestinal symptoms. Stool patterns are reportedly normal, with daily movements. There is no history of diarrhea, abdominal pain, or noticeable blood in the stool. The patient notes a prior history of constipation when starting insulin two years ago, which resolved without ongoing issues. There is no regular experience of gas, nausea, vomiting, heartburn, or difficulty swallowing. Past nausea was associated with starting Mounjaro, which resolved quickly. The patient reports stable weight with a recent minor, unintentional loss attributed to Mounjaro-induced appetite suppression. The medication history includes treatment for iron deficiency anemia. Elevated blood pressure reading of 155/92 at home and a higher reading of 204 in the clinic today, contributing stress likely exacerbated by office visits. No history of significant heart or lung disease was reported. 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 Reports active physical status at work. - family hx as below -denies personal hx of CA -denies significant cardiopulmonary history -tolerated anesthesia in the past without difficulty. PFS Medical History (Updated 07/28/25 @ 16:26 by Meggan Nguyễn CNP) Hypertension Positive colorectal cancer screening using Cologuard test Pure hypercholesterolemia Microalbuminuria Dysphagia Anemia Diabetic ulcer of right foot, limited to breakdown of skin Elevated blood pressure reading Controlled type 2 diabetes mellitus Amputated toe of right foot Diabetes Family History (Updated 07/28/25 @ 14:15 by Meggan Nguyễn CNP) Mother Lung cancer Father Diabetes Congestive heart failure FHx: mental illness Dementia Colon polyp Social History Housing: House Alcohol intake: never Patient Tobacco Use Status: Never used Tobacco Tobacco use type: Smokeless Tobacco e-Cigarette/Vaping Use: Never Used Second Hand Smoke Exposure: No service: No Current occupational status: employed 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 Current occupational exposures/hazards: No Cognitive needs: No Hearing needs: No Vision needs: No Review of Systems Const Reports as per HPI ENT Reports as per HPI Card Reports as per HPI Resp Reports as per HPI GI Reports as per HPI Reports as per HPI Physical Exam Vital Signs: Last Vital Signs Pulse 96 07/28/25 13:41 BP 204/92 H 07/28/25 13:41 BMI result Body Mass Index 21.8 Const General: healthy appearing, no acute distress and well developed Nutritional Appearance: average body habitus Orientation/consciousness: patient oriented x3 HEENT Other: Jaw asymmetry noted (left side appears more sunken), possibly due to habitual chewing Head: Yes normocephalic and Yes atraumatic Face and sinus: Yes normal facial exam Eyes General: appearance normal, both eyes and all related structures Neck Neck: Yes normal visual inspection Resp Effort & Inspection: normal respiratory effort, able to speak in complete sentences, no tracheal deviation and symmetric chest movement Auscultation: clear to auscultation bilaterally Cardio Jugular venous distension: no JVD Rate: regular rate Rhythm: regular rhythm Heart sounds: S1 normal heart sound present, S2 normal heart sound present, no gallops and no murmurs GI Inspection: Yes normal to inspection and No distended Palpation (GI): Soft to palpation, not firm, nontender and No hepatosplenomegaly present Auscultation: normal bowel sounds Neuro General: patient oriented x3 Gait exam (Neuro): Normal gait present Psych Appearance: grossly normal Mental Status: mental status grossly normal Speech and movement: Normal speech and movement present Affect: normal affect Attitude: cooperative Thought process: Normal thought process present Thought content: Normal thought content present Insight: Good insight present (Psych) Judgement: Good judgement present (Psych) Assessment & Plan Assessment & Plan (1) Positive colorectal cancer screening using Cologuard test: Comment: positive Cologuard test on June 27, 2025. Code(s): R19.5 - Other fecal abnormalities Category: Medical Plan: Positive Cologuard test; pending colonoscopy to evaluate for source (e.g., polyps, mass, potential malignancy) Additional Testing: Colonoscopy within 8 weeks to rule out malignancy Medications: -prescriptions for laxative tablets and MiraLax sent to pharmacy; instructions for Gatorade purchase and clear liquid diet given. Lifestyle Recommendations: Maintain fiber intake, hydration, and physical activity; monitor stools for bleeding or changes Education: -on scheduling process, procedure preparation, including avoiding certain foods and ensuring clear liquid intake -Advised on necessity for ride post-procedure due to sedation. Follow-Up: Call if no colonoscopy scheduling within 4 weeks; monitor for concerning symptoms (2) Anemia: Code(s): D64.9 - Anemia, unspecified Category: Medical Qualifiers: Anemia type: iron deficiency Iron deficiency anemia type: unspecified iron deficiency Qualified Code(s): D50.9 - Iron deficiency anemia, unspecified Plan: Lab-confirmed iron deficiency anemia; on oral iron Additional Testing: Monitor CBC, iron studies as indicated Medication Management: Continue oral iron; monitor for GI side effects (constipation) Lifestyle: Emphasize fiber and hydration to counteract iron-induced constipation F/U: Reassess anemia status after colonoscopy and ongoing iron therapy (3) Hypertension: Code(s): I10 - Essential (primary) hypertension Category: Medical Qualifiers: Hypertension type: unspecified Qualified Code(s): I10 - Essential (primary) hypertension Plan: Elevated BP at home and clinic readings; stress a likely factor Additional Testing: Monitor BP at home; follow up with PCP as planned Medication Management: Continue current regimen; adjust based on PCP recommendations Lifestyle Recommendations: Stress moderation, dietary focus on low sodium, regular physical activity Follow-Up: Address BP during the next primary care visit on Friday Plan Follow-up after endoscopy or sooner as needed Time: I spent a total of 30 minutes on the date of encounter which includes: Preparing to see the patient (reviewed previous documentation, test results and medical history) Performing a medically appropriate exam and/or evaluation Ordering medications, tests, and procedures Documenting clinical information in the health record Medications: New bisacodyl Take per colonoscopy instructions 5 mg PO BID 4 tabs 0RF polyethylene glycol 3350 (Miralax) per colonoscopy prep instructions 238 grams PO ONCE 238 grams 0RF Coding Level of Care Code New Pt New Pt Level 3 (61819) Patient Type New Diagnoses Positive colorectal cancer screening using Cologuard test R19.5 Iron deficiency anemia, unspecified iron deficiency anemia type D50.9 Anemia type: iron deficiency Iron deficiency anemia type: unspecified iron deficiency Hypertension, unspecified type I10 Hypertension type: unspecified
[2025-07-28 13:41] VITALS: BP 204/92; PULSE 96; BMI 21.8
--- OUTSIDE RECORDS SUMMARY | 2025-07-28 14:46 | XMS_ITS | Clinical Summary ---
Author Organization [facility] Address [address] [place] [address] Care Team Providers Care Business Architect Name Role Phone Ahmet Garcia MD Primary [...] Overview: Added automatically from request for surgery [id number] Osteomyelitis of great toe of right foot 023 Osteomyelitis 05/31/2023 Gangrene 05/30/2023 Overview: Added automatically from request for surgery [id number] Acute osteomyelitis of right ankle or foot 05/30 Overview: Added automatically from request for surgery [id number] Cellulitis of right foot 05/27/2023 Diabetes mellitus, [...] this topic Medical Devices Implanted Type Area Administrative Tech Device Identifier Shelf Expiration Date Model / Serial / Lot Hemostat Surg Ah Ana 3gm Crba-Davl [id number] - [id number] Implanted:Qty : 1 on 06/03/2023 by Carmelo Pham DPM at [facility] and Med Hemostatic Agent Right: Foot CR BARD - DAVOL DIV 01/21/2028 [id number] / / [id number] Advance Directives For more information, please contact: [phone] Latest Code Status on File Code Status [...] following way: discussion with patient. Care Teams Business Architect Relationship Specialty Start Date End Date Ahmet Garcia MD PCP - General Family Medicine 06/12/23
--- OUTSIDE RECORDS SUMMARY | 2025-07-28 14:46 | XMS_ITS | Encounter Summary ---
Author Organization [facility] Address [address] [place] [address] Care Team Providers Care Glue Mounter Operator Name Role Phone DontrellKeara cheema Helen CARDENAS Primary Care Provider [phone] Reason for Visit * Reason Onset Date Comments information needed 07/08/2025 Encounter Details Date Type Department Care Team ([facility] Contact Info) Description 07/08/2025 Telephone Gastroenterology - [place] [address] [facility] [address] [place] [address] Be Mariano MD [address] [place] [id number] Social History Tobacco Use Types Packs/Day Years [...] encounter Progress Notes * Shantal Garcia - 07/22/2025 10:20 AM EDT 3rd request faxed for insurance referral * Shantal Garcia - 07/15/2025 1:49 PM EDT 2nd request faxed for insurance referral * Shantal Garcia - 07/13/2025 1:45 PM EDT Records received, still missing insurance referral. Faxed & placed in missing folder. * Jada Brambila - 07/08/2025 1:09 PM EDT Received referral from [facility] for a colonoscopy, but only a positive cologuard report was received. Missing last OV notes, allergy list & med list. Faxed back to office and placed in MISSING accordion folder documented in this encounter Plan of Treatment Not on file documented as of this encounter Visit Diagnoses Not on filedocumented in this encounter Care Teams Glue Mounter Operator Relationship Specialty Start Date End Date Keara Jon PA [address] [place] [address] PCP - General Physician Electrician Radio 06/16/25 documented as of this encounter
--- OUTSIDE RECORDS SUMMARY | 2025-07-28 14:46 | XMS_ITS | Clinical Summary ---
Author Organization [address] [facility] Address [address] [place] [address] Phone Care Team Providers Care Manager Icu Name Role Phone Keara Jon Primary Care Provider [phone] Encounters Date Type Department Care Team Description [facility] [address] [address] Be Mariano MD 06/16/2025 Telephone [facility] 175 [facility] [address] [address] Be Mariano MD from Last 3 Months Surgical History Surgery Date Site/Laterality Comments TOE AMPUTATION 06/03/2023 Right PROCEDURE:TOE AMPUTATION;COMMENT:Procedure: PARTIAL 1ST RAY AMPUTATION, I AND D; Surgeon: Carmelo Pham DPM; Location: [facility] MAIN OPERATING ROOM; Service: Podiatry; Laterality: Right; FANNIE SAW, MINI C ARM, 10MIN OSTECTOMY 06/12/2023 Right PROCEDURE:OSTECTOMY METATARSAL;COMMENT:Procedure: OSTECTOMY METATARSAL; Surgeon: Carmelo Pham DPM; Location: [facility] RO[facility]; Service: Podiatry; Laterality: Right; SAG SAW, MINI C ARM, 15M Medical History Medical History Date Comments Diabetes mellitus (CMS/HCC V 24, CMS/HCC V28) 05/27/2023 DX:Diabetes mellitus (HCC) Seizures (CMS/HCC V24, CMS/HCC V28) DX:Seizures (HCC);COMMENT:06/09/23: over 12 years ago Visual impairment DX:Visual impa irment Diabetes mellitus, type II ( CMS/HCC V24, [facility] V28) DX:Diabetes mellitus, type I I (HCC) [...] 2) 2020 Colorectal Cancer Screening: Colonoscopy 12/18/2023 HIV Screening 12/18/2023 Hepatitis C Screening 12/18/2023 Social Influencers of Health Screening 12/18/2023 Diabetes: Annual Urine Albumin-Creatinine Ratio (uACR) 01/08/2024 Diabetes: Blood Sugar Control Test (HGBA1C) 07/22/2024 01/22/2024, 01/22/2024, 07/31/2023, Additional history exists Depression Screening 11/24/2024 Diabetes: Annual GFR (Glomerular Filtration Rate) 01/21/2025 01/22/2024, 01/22/2024, 07/31/2023, Additional history exists COVID-19 Vaccine ( season) 2025 Influenza Vaccine (#1) 2025 Cholesterol Screening (Lipid [...] this topic Medical Devices Implanted Type Area Territory Sales Representative Device Identifier Shelf Expiration Date Model / Serial / Lot Hemostat Surg Ah Ana 3gm Crba-Davl [id number] Implanted:Qty: 1 on 06/03/2023 by Carmelo Pham DPM Implants Right: Foot CR BARD - [employer] DIV 01/21/[address] / / [id number] Insurance [facility] Care Teams Manager Icu Relationship Specialty Start Date End Date Keara Jon PA [address] [place] [address] PCP - General Physician Blacktop Spreader 06/16/25
== END 2025-07-28 14:29 | disposition home or self-care (01) ==
LOC: HO.HGI 13:31
PROVIDERS: PCP Physician Assistant Medical; Visit Provider Nurse Practitioner Family
DX: R19.5 Other fecal abnormalities (principal); D50.9 Iron deficiency anemia, unspecified; I10 Essential (primary) hypertension
CPT/HCPCS: 99203

== ENCOUNTER 2025-08-01 15:44 | Outpatient (AMB) | payer BC, SELFPAY ==
--- NOTE | 2025-08-01 16:01 | MHC.PC.OV ---
Vital Signs 08/01/25 16:07 Height 5 ft 10 in Weight 155 lb BMI 22.2 BP 148/88 H Blood Pressure Location Rt brachial Position Sitting Respiration 16 Pulse 91 Pulse Source Pulse Oximeter Temp 98.4 F Temp Source Temporal Artery Scan Pulse Oximetry (%) 98 Oxygen Delivery Method Room Air Intake Visit Reasons: BP check Intake Note: Abraham presents in the office today for a follow up to his blood pressure. Allergies Penicillins Allergy (Verified 08/01/25 16:05) Rash lisinopril Adverse Reaction (Intermediate, Verified 08/01/25 16:05) Cough Medication List - Last Reconciled 08/02/25 by RONALD Roberson bisacodyl 5 mg PO BID blood-glucose sensor (Dexcom G7 Sensor device) apply new sensor every 10 days as directed blood-glucose,wire temperer,cont (Dexcom G7 Public Health Aide) As directed ferrous sulfate 325 mg PO DAILY glucose (Dex4 Glucose Quick Dissolve) 16 grams (4 x 4 gram) PO Q15M PRN losartan 50 mg PO DAILY miscellaneous medical supply (Blood Pressure Cuff) As directed pen needle, diabetic As directed pen needle, diabetic As directed polyethylene glycol 3350 (Miralax) 238 grams PO ONCE rosuvastatin 10 mg PO BEDTIME tirzepatide (Mounjaro) 2.5 mg (0.5 mL) subcut QWEEK Tobacco use date assessed: 08/01/25 Dental Screening Dental Screen Date: 08/01/25 Did you have a dental visit in the last 12 months?: Yes Did you have a dental problem in the last 6 months where you did not have access to dental care?: No Was dental information given to patient?: Patient has dentist HPI HPI Comments History of Present Illness Details This is a 55 year old male with a pmhx of Type II Diabetes presenting for follow up. He is accompanied by his , Michaelle. Type II DM- Taking Lantus 6 units daily and started Mounjaro 2.5 mg. He had 2 doses. He had mild nausea following administration of the 1st dose which resolved. Hemoglobin A1c is 7% 06/02/2025. He was diagnosed after being hospitalized at [place] for 13 days due to ?bacteremia in the setting of a right great toe infection after cutting his foot on glass. His A1C at diagnosis was 11.6%. His father had Type II DM. Patient reports he was tested for Type I DM, and this evaluation was negative. Denies hypoglycemia. He previously declines CGM, but today he would like to proceed with it. He is compliant with glucose monitoring. His glucose readings have been between 80-100 on his current regimen. He is a nonsmoker and doesn't drink alcohol. Complications: neuropathy in his feel. He sees podiatry, Dr. Pham. He just saw him due to an ulcer on the right foot. He is applying antibiotic ointment and bandaging this. Denies fevers, chills, drainage, swelling. He has an appointment with wound care this week. He had an eye exam, and is was recommended that he see a retinal specialist for evaluation. Patient has microalbuminuria. He was started on rosuvastatin for hyperlipidemia. Hypertension-this is a relatively new diagnosis. There is a component of office hypertension. He started losartan 25 mg. He denies side effects. They brought a list of home readings: 165/91 175/98 169/94 167/95 152/82 124/76 Anemia-found incidentally on blood work. He is taking an iron supplement now. Reported 20 year history of dysphagia with starchy foods at his initial visit. He has never had an EGD, and he was due for colonoscopy. Denied progressively worsening dysphagia, regurgitation, weight loss, nausea or vomiting. Endorses chronic cough after eating. Subsequently patient has positive Cologuard testing, and he was referred urgently to Gastroenterology. He was seen for the appointment, and colonoscopy is going to be scheduled within the next 8 weeks. Continues to deny abdominal pain, nausea, vomiting, diarrhea or blood in stools. ROS: Constitutional: No unexplained weight loss, fever, chills, fatigue or night sweats. Eyes: No vision changes, blurry vision, double vision Respiratory: No shortness of breath or sputum production Cardiovascular: No chest pain, chest pressure or chest discomfort. No palpitations or pedal edema. Gastrointestinal: No anorexia, nausea, vomiting or diarrhea. No abdominal pain or blood in stool. Genitourinary: No dysuria, hematuria, urinary frequency. Neurologic: No headache, dizziness, syncope, unilateral weakness, ataxia or seizures. Endocrine: No cold or heat intolerance. No polyuria or polydipsia. Physical exam: Constitutional: Alert, in no distress. Neck: Supple, Full range of motion. No lymphadenopathy. No palpable thyroid masses. Respiratory: Clear to auscultation. Cardiovascular: S1 S2 regular. No murmurs. Gastrointestinal: Abdomen soft, non-tender, non-distended. Normal bowel sounds. No palpable masses. No rebound or guarding. Neurologic: No focal neurological deficits. Extremities: Warm and well perfused, no edema. [facility], [facility] Medical History (Updated 07/28/25 @ 16:26 by Meggan Nguyễn CNP) Hypertension Positive colorectal cancer screening using Cologuard test Pure hypercholesterolemia Microalbuminuria Dysphagia Anemia Diabetic ulcer of right foot, limited to breakdown of skin Elevated blood pressure reading Controlled type 2 diabetes mellitus Amputated toe of right foot Diabetes Family History Mother Lung cancer Father Diabetes Congestive heart failure FHx: mental illness Dementia Colon polyp Social History (Updated 08/01/25 @ 16:03 by Tori Mehta MA) Housing: House Alcohol intake: never Patient Tobacco Use Status: Never used Tobacco Tobacco use type: Smokeless Tobacco e-Cigarette/Vaping Use: Never Used Second Hand Smoke Exposure: No service: No Current occupational status: employed 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 [employer] Current occupational exposures/hazards: No Cognitive needs: No Hearing needs: No Vision needs: No Questionnaire Thrive Questionnaire Date Thrive assessed: 06/02/25 I am a: Patient What is your living situation today?: I have a steady place to live Within the past 12 months, did the food you bought not last and you didn't have the money to get more?: Never true Within the past 12 months, did you worry whether your food would run out before you got money to buy more?: Never true Do you have trouble paying for medicines?: No Do you have trouble getting transportation to medical appointments?: No Do you have trouble paying your heating and electricity bill?: No Do you have trouble taking care of your child, family member or friend?: No Do you have trouble with day-to-day activities such as bathing, preparing meals, shopping, managing finances, etc.?: No Are you currently unemployed and looking for a job?: No Are you interested in more education?: No Please select the resources that you would like help with: None Currently or been in a relationship where the following occur: No concerns reported THRIVE Score: 0 MIRNA-7 AMB Questionnaire MIRNA-7 Date MIRNA - 7 assessed: 06/02/25 Source: Developed by Drs. Ahmet Perez, Ijeoma Ramos, Niko Nguyen and colleagues, with an educational madison from [employer]. Physical exam (Primary Care) Vital Signs: Last Vital Signs Temp 98.4 F 08/01/25 16:07 Pulse 91 08/01/25 16:07 Resp 16 08/01/25 16:07 BP 148/88 H 08/01/25 16:07 Pulse Ox 98 08/01/25 16:07 Oxygen Delivery Method Room Air 08/01/25 16:07 BMI result Body Mass Index 22.2 Tobacco/Smoking Status: Tobacco use Status Tobacco use date assessed 08/01/25 08/01/25 16:05 Patient Tobacco Use Status Never used Tobacco 08/01/25 16:05 Tobacco use type Smokeless Tobacco 08/01/25 16:05 e-Cigarette/Vaping Use Never Used 08/01/25 16:05 Thrive Assessment: Date of Thrive Assessment Date Thrive assessed 06/02/25 08/01/25 16:05 Currently or been in a relationship where the following occur: No concerns reported Results Reviewed Results Reviewed: Laboratory Tests 06/02/25 06/02/25 06/02/25 09:47 10:49 10:56 WBC 7.9 RBC 3.46 L Hgb 10.8 L Hct 31.2 L Plt Count 302 Creatinine 1.18 Estimated GFR > 60 Hgb A1c (Clinic) 7.0 H AST 32 ALT 19 Triglycerides 68 Cholesterol 159 LDL Cholesterol, Calc 105 H HDL Cholesterol 41 Prostate Specific Ag 1.36 TSH 0.69 Urine Creatinine 43.69 Urine Microalbumin 539.0 Microalb/Creat Ratio 1233.6 H Coding Level of Care Code Est Pt Level 4 (55285) Complex EM visit Add On G2211 Diagnoses Controlled type 2 diabetes mellitus E11.9 Elevated blood pressure reading R03.0 Diabetic ulcer of other part of right foot associated with type 2 diabetes mellitus, limited to breakdown of skin E11.621; L97.511 Diabetic foot ulcer location: other Diabetes mellitus type: type 2 Oropharyngeal dysphagia R13.12 Dysphagia type: oropharyngeal phase Iron deficiency anemia, unspecified iron deficiency anemia type D50.9 Anemia type: iron deficiency Iron deficiency anemia type: unspecified iron deficiency Positive colorectal cancer screening using Cologuard test R19.5 Pure hypercholesterolemia E78.00 Assessment & Plan Assessment & Plan (1) Controlled type 2 diabetes mellitus: Code(s): E11.9 - Type 2 diabetes mellitus without complications Category: Medical Plan: Discussed pathophysiology of Type II Diabetes Mellitus with the patient in detail.? I explained the truck terminal manager risks and complications associated with uncontrolled diabetes including nephropathy, neuropathy, peripheral vascular disease, retinopathy, increased risk of heart disease and stroke.? Continue diabetic diet. CGM ordered. Discontinue Lantus. Continue Mounjaro 2.5 mg weekly. If blood sugars increase we can increase the dose of Mounjaro. Reviewed treatment of hypoglycemia. Glucose tablets were prescribed. (2) Elevated blood pressure reading: Code(s): R03.0 - Elevated blood-pressure reading, without diagnosis of hypertension Category: Medical Plan: Increase losartan to 50 mg daily. Recommended low-sodium diet and avoidance of caffeine. Continue to monitor at home as there is a component of office hypertension and anxiety. (3) Diabetic ulcer of right foot, limited to breakdown of skin: Code(s): E11.621 - Type 2 diabetes mellitus with foot ulcer; L97.511 - Non-pressure chronic ulcer of other part of right foot limited to breakdown of skin Category: Medical Qualifiers: Diabetic foot ulcer location: other Diabetes mellitus type: type 2 Qualified Code(s): E11.621 - Type 2 diabetes mellitus with foot ulcer; L97.511 - Non-pressure chronic ulcer of other part of right foot limited to breakdown of skin Plan: Following with Podiatry and he also has the appointment scheduled with wound care. He is continuing dressing changes and application of antibiotic ointment. (4) Dysphagia: Code(s): R13.10 - Dysphagia, unspecified Category: Medical Qualifiers: Dysphagia type: oropharyngeal phase Qualified Code(s): R13.12 - Dysphagia, oropharyngeal phase (5) Anemia: Code(s): D64.9 - Anemia, unspecified Category: Medical Qualifiers: Anemia type: iron deficiency Iron deficiency anemia type: unspecified iron deficiency Qualified Code(s): D50.9 - Iron deficiency anemia, unspecified (6) Positive colorectal cancer screening using Cologuard test: Comment: positive Cologuard test on June 27, 2025. Code(s): R19.5 - Other fecal abnormalities Category: Medical Plan: The patient was seen by Gastroenterology, and colonoscopy is pending care. Continue iron supplement. Recheck labs in 2 weeks. (7) Pure hypercholesterolemia: Code(s): E78.00 - Pure hypercholesterolemia, unspecified Category: Medical Plan: Recommended Mediterranean diet and continuing rosuvastatin. Plan Follow up in 4 weeks. Orders: Orders IRON PROFILE 08/01/25 D64.9 - Anemia, unspecified Complete Blood Count Auto Diff 08/01/25 D50.9 - Iron deficiency anemia, unspecified Basic Metabolic Panel Today I10 - Essential (primary) hypertension Medications: New blood-glucose,wire temperer,cont (Dexcom G7 Public Health Aide) As directed 1 ea 0RF losartan 50 mg PO DAILY 90 tabs 0RF blood-glucose sensor (Dexcom G7 Sensor device) apply new sensor every 10 days as directed 3 ea 11RF E11.9 - Type 2 diabetes mellitus without complications Discontinued losartan Replaces lisinopril 10 mg daily. Discontinued Reason: Doctor's Order 25 mg PO DAILY 90 tabs 0RF
[2025-08-01 16:07] VITALS: BP 148/88; PULSE 91; RESP 16; TEMP 36.9; O2SAT 98; BMI 22.2
--- OUTSIDE RECORDS SUMMARY | 2025-08-01 18:34 | XMS_ITS | Clinical Summary ---
Author Organization [facility] Address [address] [place] [address] Phone Care Team Providers Care Airport Manager Name Role Phone Keara Jon Primary Care Provider [phone] Encounters Date Type Department Care Team Description [facility] [address] [address] Be Mariano MD 06/16/2025 Telephone [facility] 175 [facility] [address] [address] Be Mariano MD from Last 3 Months Surgical History Surgery Date Site/Laterality Comments TOE AMPUTATION 06/03/2023 Right PROCEDURE:TOE AMPUTATION;COMMENT:Procedure: PARTIAL 1ST RAY AMPUTATION, I AND D; Surgeon: Carmelo Pham DPM; Location: [facility] MAIN OPERATING ROOM; Service: Podiatry; Laterality: Right; FANNIE SAW, MINI C ARM, 10MIN OSTECTOMY 06/12/2023 Right PROCEDURE:OSTECTOMY METATARSAL;COMMENT:Procedure: OSTECTOMY METATARSAL; Surgeon: Carmelo Pham DPM; Location: [facility] MAIN OPERATING ROOM; Service: Podiatry; Laterality: Right; SAG SAW, MINI C ARM, 15M Medical History Medical History Date Comments Diabetes mellitus (CMS/HCC V 24, CMS/HCC V28) 05/27/2023 DX:Diabetes mellitus (HCC) Seizures (CMS/HCC V24, CMS/HCC V28) DX:Seizures (HCC);COMMENT:06/09/23: over 12 years ago Visual impairment DX:Visual impa irment Diabetes mellitus, type II ( CMS/HCC V24, [facility] V28) DX:Diabetes mellitus, type I I (HCC) [...] this topic Medical Devices Implanted Type Area Machinist First Class Device Identifier Shelf Expiration Date Model / Serial / Lot Hemostat Surg Ah Ana 3gm Crba-Davl [id number] Implanted:Qty: 1 on 06/03/2023 by Carmelo Pham DPM Implants Right: Foot CR BARD - DAVOL DIV 01/21/[address] / / [id number] Insurance [facility] Care Teams Airport Manager Relationship Specialty Start Date End Date Keara Jon PA [address] [place] [address] PCP - General Physician Stuffing Machine Operator 06/16/25
--- OUTSIDE RECORDS SUMMARY | 2025-08-01 18:34 | XMS_ITS | Clinical Summary ---
Author Organization [facility] Address [address] [place] [address] Care Team Providers Care Gridcap Machine Operator Name Role Phone Ahmet Garcia MD Primary [...] Overview: Added automatically from request for surgery [id number] Osteomyelitis of great toe of right foot 023 Osteomyelitis 05/31/2023 Gangrene 05/30/2023 Overview: Added automatically from request for surgery [id number] Acute osteomyelitis of right ankle or foot 05/30 Overview: Added automatically from request for surgery [id number] Cellulitis of right foot 05/27/2023 Diabetes mellitus, [...] this topic Medical Devices Implanted Type Area Senior Solutions Workflow Consultant Device Identifier Shelf Expiration Date Model / Serial / Lot Hemostat Surg Ah Ana 3gm Crba-Davl [id number] - [id number] Implanted:Qty : 1 on 06/03/2023 by Carmelo Pham DPM at [facility] [place] and Med Hemostatic Agent Right: Foot CR BARD - DAVOL DIV 01/21/2028 [id number] / / [id number] Advance Directives For more information, please contact: [phone] Latest Code Status on File Code Status [...] following way: discussion with patient. Care Teams Gridcap Machine Operator Relationship Specialty Start Date End Date Ahmet Garcia MD PCP - General Family Medicine 06/12/23
--- OUTSIDE RECORDS SUMMARY | 2025-08-01 18:34 | XMS_ITS | Encounter Summary ---
Author Organization [facility] Address [address] [place] [address] Care Team Providers Care Artist Blacksmith Name Role Phone DontrellKeara cheema Helen CARDENAS Primary Care Provider [phone] Reason for Visit * Reason Onset Date Comments information needed 07/08/2025 Encounter Details Date Type Department Care Team ([facility] Contact Info) Description 07/08/2025 Telephone Gastroenterology - [place] [address] 175 [facility] [address] [place] [address] Be Mariano MD [address] [place] [phone] Social History Tobacco Use Types Packs/Day [...] 07/08/2025 1:09 PM EDT Received referral from [facility] for a colonoscopy, but only a positive cologuard report was received. Missing last OV notes, allergy list & med list. Faxed back to office and placed in MISSING accordion folder documented in this encounter Plan of Treatment Not on file documented as of this encounter Visit Diagnoses Not on filedocumented in this encounter Care Teams Artist Blacksmith Relationship Specialty Start Date End Date Keara Jon PA [address] [place] [address] PCP - General Physician [place] Truck Driver 06/16/25 documented as of this encounter
== END 2025-08-01 16:42 | disposition home or self-care (01) ==
LOC: HO.HMCFM 15:45
PROVIDERS: PCP Physician Assistant Medical; Visit Provider Physician Assistant Medical
DX: E11.621 Type 2 diabetes mellitus with foot ulcer (principal); L97.511 Non-pressure chronic ulcer of other part of right foot limited to breakdown of skin; R03.0 Elevated blood-pressure reading, without diagnosis of hypertension; R13.12 Dysphagia, oropharyngeal phase; D50.9 Iron deficiency anemia, unspecified; R19.5 Other fecal abnormalities; E78.00 Pure hypercholesterolemia, unspecified

== ENCOUNTER → 2025-08-01 15:44 | Outpatient (BNVA) | payer BC, SELFPAY | PROVIDERS: PCP Physician Assistant Medical; Visit Provider Physician Assistant Medical | DX: I10 Essential (primary) hypertension (principal) ==

== ENCOUNTER 2025-09-08 15:47 | Outpatient (AMB) | payer BC, SELFPAY ==
--- NOTE | 2025-09-08 15:59 | A.OFFPC_ITS ---
Vital Signs 09/08/25 16:07 Height 5 ft 10 in Weight 143 lb 4 oz BMI 20.6 BP 138/84 Blood Pressure Location Lt brachial Position Sitting Respiration 16 Pulse 101 H Pulse Source Pulse Oximeter Temp 98.8 F Temp Source Temporal Artery Scan Pulse Oximetry (%) 98 Oxygen Delivery Method Room Air Intake Visit Reasons: med review Intake Note: Abraham presents in the office to day for a hospital discharge, as well as, [place] paperwork. Patient was prescribed Diltiazem for BP and they are questioning it due to taking the Losartan. Allergies Penicillins Allergy (Verified 09/08/25 16:02) Rash lisinopril Adverse Reaction (Intermediate, Verified 09/08/25 16:02) Cough Medication List - Last Reconciled 09/08/25 by RONALD Roberson bisacodyl 5 mg PO BID blood-glucose sensor (Dexcom G7 Sensor device) apply new sensor every 10 days as directed blood-glucose,firmware manager,cont (Dexcom G7 Food Service Assistant) As directed cyanocobalamin (vitamin B-12) 1,000 mcg PO DAILY daptomycin 500 mg IV Q24H ferrous sulfate 325 mg PO DAILY glucose (Dex4 Glucose Quick Dissolve) 16 grams (4 x 4 gram) PO Q15M PRN losartan 50 mg PO DAILY miscellaneous medical supply (Blood Pressure Cuff) As directed pen needle, diabetic As directed pen needle, diabetic As directed polyethylene glycol 3350 (Miralax) 238 grams PO ONCE rosuvastatin 10 mg PO BEDTIME sertraline (Zoloft) 50 mg PO DAILY tirzepatide (Mounjaro) 2.5 mg (0.5 mL) subcut QWEEK Tobacco use date assessed: 08/01/25 Dental Screening Dental Screen Date: 08/01/25 HPI HPI Comments History of Present Illness Details This is a 55 year old male with a pmhx of Type II Diabetes, status post amputation of the right big toe in 2022 anemia, hypertension, positive Cologuard presenting for hospital follow up. He is accompanied by his , Michaelle. Patient was hospitalized 10 the to 08/30/2025 at [facility] due to cellulitis and osteomyelitis of the left foot. ID and surgery were consulted. He was initially treated with vancomycin and Zosyn and changed to daptomycin for a 6 week course of antibiotics. He was advised to avoid prolonged weight-bearing. Diabetes well-controlled with hemoglobin A1c of 6%. Pain is down to a 3 or 4/10. He is sleeping. He is not requiring pain medication. He has [facility] forms for continuous leave and a form for a temporary handicap placard. Patient had ADEOLA with creatinine 1.55 which decreased to 1.36 upon discharge. H and H low at 8.8 and 25.1. Patient has known anemia and positive Cologuard and recently saw Gastroenterology and was scheduled for colonoscopy. Denies abdominal pain, stool changes, vomiting, blood in stools. Interval weight loss with hospitalization. Patient had microscopic hematuria with 11 RBCs per high-power field. Also had trace ketones and 2+ albumin and trace glucose. I spoke to Michaelle while he was hospitalized and placed referrals to Infectious Disease and Podiatry, but he says that he did not hear about scheduling these appointments. His colonoscopy is being rescheduled until after he completes antibiotics. He is seeing Wound Care once a week. Next appointment is 09/13/2025. He had chronic ulcers on the right foot which are healing, and he is pleased about this. He is using diabetic slippers. Hypertension was being treated with losartan, and diltiazem was given while hospitalized, but he has not stopped it. Blood pressure is 138/84 today on 50 mg of losartan daily. Patient endorses anxiety given recent health issues and health issues of his father. He is interested in starting medicine for this. He is not interested in therapy right now. Type II DM-taking Mounjaro 2.5 mg. Previously on Lantus which was discontinued once he started the GLP 1. He was diagnosed after being hospitalized at [facility] for 13 days due to ?bacteremia in the setting of a right great toe infection after cutting his foot on glass. His A1C at diagnosis was 11.6%. His father had Type II DM. Patient reports he was tested for Type I DM, and this evaluation was negative. Denies hypoglycemia. He is a nonsmoker and doesn't drink alcohol. Complications: neuropathy in his feet, but he still has feeling. He had an eye exam, and is was recommended that he see a retinal specialist for evaluation. Patient has microalbuminuria. He was started on rosuvastatin for hyperlipidemia. Anemia-found incidentally on blood work. He is taking an iron supplement. Reported 20 year history of dysphagia with starchy foods at his initial visit. He has never had an EGD, and he was due for colonoscopy. Denied progressively worsening dysphagia, regurgitation, weight loss, nausea or vomiting. Endorses chronic cough after eating. Subsequently patient has positive Cologuard testing, and he was referred urgently to Gastroenterology. ROS: Constitutional: +weight loss, no fevers or chills or night sweats Eyes: No vision changes, blurry vision, double vision Respiratory: No shortness of breath or sputum production Cardiovascular: No chest pain, chest pressure or chest discomfort. No palpitations or pedal edema. Gastrointestinal: No anorexia, nausea, vomiting or diarrhea. No abdominal pain or blood in stool. No reflux. Genitourinary: No dysuria, hematuria, urinary frequency. Neurologic: No headache, dizziness, syncope, unilateral weakness, ataxia or seizures. Endocrine: No cold or heat intolerance. No polyuria or polydipsia. Physical exam: Constitutional: Alert, in no distress. Neck: Supple, Full range of motion. No lymphadenopathy. No palpable thyroid masses. Respiratory: Clear to auscultation. Cardiovascular: S1 S2 regular. No murmurs. Gastrointestinal: Abdomen soft, non-tender, non-distended. Normal bowel sounds. No palpable masses. No rebound or guarding. Neurologic: No focal neurological deficits. Extremities: Intact DP pulses. No edema. No clubbing or cyanosis. Sensation intact bilaterally. Dry , flaking skin bilaterally. Mild erythema of the left 5th toe and lateral aspect of the distal left foot. There is a stage II ulcer on the lateral aspect of the left pinky toe and stage III ulcer on the lateral aspect of the distal left foot with granulation tissue in the center. There is a stage III ulcer medially on the plantar aspect of the ball of the right foot and a callus and close ulcer laterally on the plantar aspect of the right foot. No discharge. No gangrene or dusky or black discoloration. Psychiatric: Cooperative, maintains good eye contact [facility] Medical History (Updated 09/08/25 @ 17:32 by RONALD Roberson) Microhematuria Anxiety Hospital discharge follow-up Nonhealing skin ulcer Leg osteomyelitis, left Hypertension Positive colorectal cancer screening using Cologuard test Pure hypercholesterolemia Microalbuminuria Dysphagia Anemia Diabetic ulcer of right foot, limited to breakdown of skin Elevated blood pressure reading Controlled type 2 diabetes mellitus Amputated toe of right foot Diabetes Family History Mother Lung cancer Father Diabetes Congestive heart failure FHx: mental illness Dementia Colon polyp Social History (Updated 08/01/25 @ 16:03 by Tori Mehta MA) Housing: House Alcohol intake: never Patient Tobacco Use Status: Never used Tobacco Tobacco use type: Smokeless Tobacco e-Cigarette/Vaping Use: Never Used Second Hand Smoke Exposure: No service: No Current occupational status: employed 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 [employer] Current occupational exposures/hazards: No Cognitive needs: No Hearing needs: No Vision needs: No Questionnaire Thrive Questionnaire Date Thrive assessed: 06/02/25 I am a: Patient What is your living situation today?: I have a steady place to live Within the past 12 months, did the food you bought not last and you didn't have the money to get more?: Never true Within the past 12 months, did you worry whether your food would run out before you got money to buy more?: Never true Do you have trouble paying for medicines?: No Do you have trouble getting transportation to medical appointments?: No Do you have trouble paying your heating and electricity bill?: No Do you have trouble taking care of your child, family member or friend?: No Do you have trouble with day-to-day activities such as bathing, preparing meals, shopping, managing finances, etc.?: No Are you currently unemployed and looking for a job?: No Are you interested in more education?: No Please select the resources that you would like help with: None Currently or been in a relationship where the following occur: No concerns reported THRIVE Score: 0 MIRNA-7 AMB Questionnaire MIRNA-7 Date MIRNA - 7 assessed: 06/02/25 Source: Developed by Drs. Ahmet Perez, Ijeoma Ramos, Niko Nguyen and colleagues, with an educational madison from [employer]. Physical exam (Primary Care) Vital Signs: Last Vital Signs Temp 98.8 F 09/08/25 16:07 Pulse 101 H 09/08/25 16:07 Resp 16 09/08/25 16:07 BP 138/84 09/08/25 16:07 Pulse Ox 98 09/08/25 16:07 Oxygen Delivery Method Room Air 10/16/25 16:07 BMI result Body Mass Index 20.6 Tobacco/Smoking Status: Tobacco use Status Tobacco use date assessed 08/01/25 09/08/25 16:01 Patient Tobacco Use Status Never used Tobacco 09/08/25 16:01 Tobacco use type Smokeless Tobacco 09/08/25 16:01 e-Cigarette/Vaping Use Never Used 09/08/25 16:01 Thrive Assessment: Date of Thrive Assessment Date Thrive assessed 06/02/25 09/08/25 16:01 Currently or been in a relationship where the following occur: No concerns reported Coding Level of Care Code Est Pt Level 5 (31477) Complex EM visit Add On G2211 Diagnoses Hospital discharge follow-up Z09 Diabetic ulcer of other part of right foot associated with type 2 diabetes mellitus, limited to breakdown of skin E11.621; L97.511 Diabetic foot ulcer location: other Diabetes mellitus type: type 2 Leg osteomyelitis, left M86.9 Controlled type 2 diabetes mellitus E11.9 Iron deficiency anemia, unspecified iron deficiency anemia type D50.9 Anemia type: iron deficiency Iron deficiency anemia type: unspecified iron deficiency Positive colorectal cancer screening using Cologuard test R19.5 Pure hypercholesterolemia E78.00 Anxiety F41.9 Hypertension, unspecified type I10 Hypertension type: unspecified Microhematuria R31.29 Time Spent (min) 62 Comment Chart review, completing forms, completing documentation, seeing the patient Assessment & Plan Assessment & Plan (1) Hospital discharge follow-up: Code(s): Z09 - Encounter for follow-up examination after completed treatment for conditions other than malignant neoplasm Category: Medical Plan: 55-year-old male with well-controlled type 2 diabetes presenting for hospital follow up for left leg cellulitis and osteomyelitis. He is improving. He is seeing Wound Care weekly and doing dressing changes at home every day. His is administering IV antibiotics for the next 6 weeks. I am following up on referrals to podiatry and Infectious Disease. Recommended avoidance of prolonged weight-bearing. Completed FMLA form and temporary handicap placard. He will repeat labs next week. Warning signs warranting re-evaluation at ED reviewed. MARCO A ordered. (2) Diabetic ulcer of right foot, limited to breakdown of skin: Code(s): E11.621 - Type 2 diabetes mellitus with foot ulcer; L97.511 - Non-pressure chronic ulcer of other part of right foot limited to breakdown of skin Category: Medical Qualifiers: Diabetic foot ulcer location: other Diabetes mellitus type: type 2 Qualified Code(s): E11.621 - Type 2 diabetes mellitus with foot ulcer; L97.511 - Non-pressure chronic ulcer of other part of right foot limited to breakdown of skin (3) Leg osteomyelitis, left: Code(s): M86.9 - Osteomyelitis, unspecified Category: Medical (4) Controlled type 2 diabetes mellitus: Code(s): E11.9 - Type 2 diabetes mellitus without complications Category: Medical Plan: Discussed pathophysiology of Type II Diabetes Mellitus with the patient in detail.? I explained the [facility] risks and complications associated with uncontrolled diabetes including nephropathy, neuropathy, peripheral vascular disease, retinopathy, increased risk of heart disease and stroke.? Continue diabetic diet. Patient has a CGM. Continue Mounjaro 2.5 mg weekly. (5) Anemia: Code(s): D64.9 - Anemia, unspecified Category: Medical Qualifiers: Anemia type: iron deficiency Iron deficiency anemia type: unspecified iron deficiency Qualified Code(s): D50.9 - Iron deficiency anemia, unspecified (6) Positive colorectal cancer screening using Cologuard test: Comment: positive Cologuard test on June 27, 2025. Code(s): R19.5 - Other fecal abnormalities Category: Medical Plan: The patient was seen by Gastroenterology, and colonoscopy is being rescheduled due to being on antibiotics to treat osteomyelitis and cellulitis. Continue iron supplement. Recheck labs next week. (7) Pure hypercholesterolemia: Code(s): E78.00 - Pure hypercholesterolemia, unspecified Category: Medical Plan: Recommended Mediterranean diet and continuing rosuvastatin. (8) Anxiety: Code(s): F41.9 - Anxiety disorder, unspecified Category: Medical Plan: Reviewed side effects of SSRI. Reviewed black box warning. He will start sertraline 25 mg for 1 week and then increase to 50 mg daily. (9) Hypertension: Code(s): I10 - Essential (primary) hypertension Category: Medical Qualifiers: Hypertension type: unspecified Qualified Code(s): I10 - Essential (primary) hypertension Plan: Increase losartan to 75 mg daily. He has not been taking diltiazem and does not want to take 2 medications if blood pressure can be controlled by increasing dose of losartan. Check renal function and potassium next week. (10) Microhematuria: Code(s): R31.29 - Other microscopic hematuria Category: Medical Plan: Repeat urinalysis and refer to Urology for persistent microhematuria. Plan Follow up in 4 weeks. Orders: Orders UA w Microscopic Today D50.9 - Iron deficiency anemia, unspecified, E11.621 - Type 2 diabetes mellitus with foot ulcer, E78.00 - Pure hypercholesterolemia, unspecified, I10 - Essential (primary) hypertension, L97.511 - Non-pressure chronic ulcer of other part of right foot limited to breakdown of skin, R39.9 - Unspecified symptoms and signs involving the genitourinary system, R80.9 - Proteinuria, unspecified Hemoglobin A1c Today D50.9 - Iron deficiency anemia, unspecified, E11.621 - Type 2 diabetes mellitus with foot ulcer, E78.00 - Pure hypercholesterolemia, unspecified, I10 - Essential (primary) hypertension, L97.511 - Non-pressure chronic ulcer of other part of right foot limited to breakdown of skin, R73.9 - Hyperglycemia, unspecified, R80.9 - Proteinuria, unspecified Ferritin Today D64.9 - Anemia, unspecified, E11.621 - Type 2 diabetes mellitus with foot ulcer, E78.00 - Pure hypercholesterolemia, unspecified, I10 - Essentia l (primary) hypertension, L97.511 - Non-pressure chronic ulcer of other part of right foot limited to breakdown of skin, R80.9 - Proteinuria, unspecified IRON PROFILE Today D64.9 - Anemia, unspecified, E11.621 - Type 2 diabetes mellitus with foot ulcer, E78.00 - Pure hypercholesterolemia, unspecified, I10 - Essential (primary) hypertension, L97.511 - Non-pressure chronic ulcer of other part of right foot limited to breakdown of skin, R80.9 - Proteinuria, unspecified US MARCO A complete Today E11.9 - Type 2 diabetes mellitus without complications, L98.499 - Non-pressure chronic ulcer of skin of other sites with unspecified severity Basic Metabolic Panel Today D50.9 - Iron deficiency anemia, unspecified, E11.621 - Type 2 diabetes mellitus with foot ulcer, E78.00 - Pure hypercholesterolemia, unspecified, I10 - Essential (primary) hypertension, L97.511 - Non-pressure chronic ulcer of other part of right foot limited to breakdown of skin, R80.9 - Proteinuria, unspecified Complete Blood Count no Diff Today D50.9 - Iron deficiency anemia, unspecified, E11.621 - Type 2 diabetes mellitus with foot ulcer, E78.00 - Pure hypercholesterolemia, unspecified, I10 - Essential (primary) hypertension, L97.511 - Non-pressure chronic ulcer of other part of right foot limited to breakdown of skin, R80.9 - Proteinuria, unspecified Erythrocyte Sedimentation Rate Today D50.9 - Iron deficiency anemia, unspecified, E11.621 - Type 2 diabetes mellitus with foot ulcer, E78.00 - Pure hypercholesterolemia, unspecified, I10 - Essential (primary) hypertension, L97.511 - Non-pressure chronic ulcer of other part of right foot limited to breakdown of skin, R80.9 - Proteinuria, unspecified Urine Culture Today D50.9 - Iron deficiency anemia, unspecified, E11.621 - Type 2 diabetes mellitus with foot ulcer, E78.00 - Pure hypercholesterolemia, unspecified, I10 - Essential (primary) hypertension, L97.511 - Non-pressure chronic ulcer of other part of right foot limited to breakdown of skin, R39.9 - Unspecified symptoms and signs involving the genitourinary system, R80.9 - Proteinuria, unspecified Lipid Panel Today D50.9 - Iron deficiency anemia, unspecified, E11.621 - Type 2 diabetes mellitus with foot ulcer, E78.00 - Pure hypercholesterolemia, unspecified, E78.5 - Hyperlipidemia, unspecified, I10 - Essential (primary) hypertension, L97.511 - Non-pressure chronic ulcer of other part of right foot limited to breakdown of skin, R80.9 - Proteinuria, unspecified Medications: New sertraline (Zoloft) Take 1/2 tab nightly for 1 week then increase to 1 tab daily. 50 mg PO DAILY 90 tabs 0RF Changed From ferrous sulfate 325 mg PO DAILY 90 tabs 0RF To ferrous sulfate Every other day 325 mg PO DAILY
[2025-09-08 16:07] VITALS: BP 138/84; PULSE 101; RESP 16; TEMP 37.1; O2SAT 98; BMI 20.6
--- OUTSIDE RECORDS SUMMARY | 2025-09-08 19:28 | XMS_ITS | Clinical Summary ---
Author Organization 175 [facility] Address [address] [place] [address] Phone Care Team Providers Care Inserting Press Operator Name Role Phone Keara Jon Primary Care Provider [phone] Encounters Date Type Department Care Team Description 07/08/2025 Telephone [facility] [address] [address] Be Mariano MD 06/16/2025 Telephone [facility] 175 [facility] [address] [address] Be Mariano MD from Last 3 Months Surgical History Surgery Date Site/Laterality Comments TOE AMPUTATION 06/03/2023 Right PROCEDURE:TOE AMPUTATION;COMMENT:Procedure: PARTIAL 1ST RAY AMPUTATION, I AND D; Surgeon: Carmelo Pham DPM; Location: [facility]; Service: Podiatry; Laterality: Right; FANNIE SAW, MINI C ARM, 10MIN OSTECTOMY 06/12/2023 Right PROCEDURE:OSTECTOMY METATARSAL;COMMENT:Procedure: OSTECTOMY METATARSAL; Surgeon: Carmelo Pham DPM; Location: [facility]; Service: Podiatry; Laterality: Right; SAG SAW, MINI C ARM, 15M Medical History Medical History Date Comments Diabetes mellitus (CMS/HCC V 24, CMS/HCC V28) 05/27/2023 DX:Diabetes mellitus (HCC) Seizures (CMS/HCC V24, CMS/HCC V28) DX:Seizures (HCC);COMMENT:06/09/23: over 12 years ago Visual impairment DX:Visual impa irment Diabetes mellitus, type II ( CMS/HCC V24, [facility] V28) DX:Diabetes mellitus, type I I (HCC) [...] Health Maintenance Due Date Last Done Comments Colorectal Cancer Screening: Colonoscopy 1970 Diabetes: Annual Foot Exam 1980 Diabetes: Annual Retina Eye Exam 1980 DTaP,Tdap,and Td Vaccines (1 - Tdap) 1989 Hepatitis B Vaccines (1 of 3 - 19+ 3-dose series) 1989 Pneumococcal Vaccine: 50+ Years (1 of 1 - PCV) 2020 Zoster Vaccines (1 of 2) 2020 HIV Screening 12/18/2023 Hepatitis C Screening 12/18/2023 Social Influencers of Health Screening 12/18/2023 Diabetes: Annual Urine Albumin-Creatinine Ratio (uACR) 01/08/2024 Diabetes: Blood Sugar Control Test (HGBA1C) 07/22/2024 01/22/2024, 01/22/2024, 07/31/2023, Additional history exists Depression Screening 11/24/2024 Diabetes: Annual GFR (Glomerular Filtration Rate) 01/21/2025 01/22/2024, 01/22/2024, 07/31/2023, Additional history exists COVID-19 Vaccine (2023- season) 2025 Influenza Vaccine (#1) 2025 Cholesterol Screening (Lipid Panel) 01/21/2029 01/22/2024, 01/22/2024, 07/31/2023 RSV Immunization Adult Patients (1 - 1-dose 75+ series) 2045 HIB Vaccines Aged Out No longer eligi [...] this topic Medical Devices Implanted Type Area Manager Quality Device Identifier Shelf Expiration Date Model / Serial / Lot Hemostat Surg Ah Ana 3gm [id number] Implanted:Qty: 1 on 06/03/2023 by Carmelo Pham DPM Implants Right: Foot CR BARD - DAVOL DIV 01/21/[address] / / [id number] Insurance [facility] Care Teams Inserting Press Operator Relationship Specialty Start Date End Date Keara Jon PA [address] [place] [address] PCP - General Physician Director Corporate Security 06/16/25
--- OUTSIDE RECORDS SUMMARY | 2025-09-08 19:28 | XMS_ITS | Clinical Summary ---
Author Organization [facility] Address [address] [place] [address] Care Team Providers Care Financial Sales Professional Name Role Phone Ahmet Garcia MD Primary [...] Overview: Added automatically from request for surgery [id number] Osteomyelitis of great toe of right foot 023 Osteomyelitis 05/31/2023 Gangrene 05/30/2023 Overview: Added automatically from request for surgery [id number] Acute osteomyelitis of right ankle or foot 05/30 Overview: Added automatically from request for surgery [id number] Cellulitis of right foot 05/27/2023 Diabetes mellitus, [...] this topic Medical Devices Implanted Type Area Deputy Insurance Commissioner Device Identifier Shelf Expiration Date Model / Serial / Lot Hemostat Surg Ah Ana 3gm [id number] [id number] Implanted:Qty : 1 on 06/03/2023 by Carmelo Pham DPM at [facility] Hemostatic Agent Right: Foot CR BARD - [employer]OL DIV 01/21/2028 [id number] / / [id number] Advance Directives For more information, please contact: [phone] Latest Code Status on File Code Status [...] following way: discussion with patient. Care Teams Financial Sales Professional Relationship Specialty Start Date End Date Ahmet Garcia MD PCP - General Family Medicine 06/12/23
== END 2025-09-08 16:52 | disposition home or self-care (01) ==
LOC: HO.HMCFM 15:48
PROVIDERS: PCP Physician Assistant Medical; Visit Provider Physician Assistant Medical
DX: E11.621 Type 2 diabetes mellitus with foot ulcer (principal); L97.511 Non-pressure chronic ulcer of other part of right foot limited to breakdown of skin; M86.9 Osteomyelitis, unspecified; Z09 Encounter for follow-up examination after completed treatment for conditions other than malignant neoplasm; D50.9 Iron deficiency anemia, unspecified; R19.5 Other fecal abnormalities; E78.00 Pure hypercholesterolemia, unspecified; F41.9 Anxiety disorder, unspecified; I10 Essential (primary) hypertension; R31.29 Other microscopic hematuria

== ENCOUNTER 2025-09-16 13:52 | Outpatient (AMB) | payer BC, SELFPAY ==
--- NOTE | 2025-09-16 13:58 | A.OFFVIS_ITS ---
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 The primary issue is an open ulcer located on the lateral area of the foot near the fifth metatarsophalangeal joint. Currently, the ulcer shows no signs of exudate or purulence and is reportedly healing well. The patient had previously undergone initiation of intravenous antibiotic therapy, which is ongoing for a prescribed course of six weeks. The patient's past medical history is significant for depression. There is no report of current psychiatric symptoms during this visit. Review of Systems - General: Denies any complaints at this time - Integumentary: Denies exudate or purulence from foot ulcer - Psychological: Depression is acknowledged Physical Exam - Vital Signs- Stable - General- No significant distress noted - Oropharynx- Clear - Respiratory- Lungs clear to auscultation - Cardiovascular- Heart rhythm regular - Abdomen- Soft, non-tender - Extremities- Open ulcer on lateral area of the foot near the fifth metatarsophalangeal joint, no exudate or purulence Results Plan Patient was informed and verbally consented to the use of an ambient scribe for clinic note documentation during this visit. 1. Foot Ulcer The ulcer is under management with intravenous antibiotics, prescribed for a duration of six weeks, to address infection and promote healing. Follow-up is necessary to assess progress. 2. Depression Acknowledged history of depression with no current therapeutic interventions discussed during this visit. Psychological monitoring will continue. 3. Osteomyelitis, unspecified M86.9 HCC 39 Suspected underlying osteomyelitis is addressed with the current antibiotic regimen. Further evaluation will take place in follow-up appointments. Discussion Notes I reviewed the patient's current condition and explained the necessity of continuing the intravenous antibiotics to manage the foot ulcer and associated osteomyelitis effectively. We discussed the importance of completing the entire course of antibiotics to prevent complications. I reinforced the need for regular follow-up visits to monitor healing and adjust treatment accordingly. The patient agreed to ongoing evaluations and therapy. Medical Decision Making The decision to continue intravenous antibiotics for the patient's foot ulcer is based on the suspected diagnosis of underlying osteomyelitis. Maintaining the integrity of the foot and preventing further infection progression are critical treatment goals. The regular monitoring of the ulcer's status and the absence of exudate or purulence suggest that the treatment is effective so far. Continuous observation and reassessment during follow-up visits will guide any adjustments in the management plan to ensure optimal recovery. Patient Instructions - Continue taking intravenous antibiotics as prescribed for the full six-week course. - Attend all scheduled follow-up appointments for evaluation of your foot ulcer. - Report any new symptoms such as increased pain, redness, swelling, or discharge from the ulcer site immediately. - Maintain good foot hygiene and wound care as directed by healthcare providers. - Keep track of any changes in mood or psychological state. [facility] Medical History (Updated 09/08/25 @ 17:32 by RONALD Roberson) Microhematuria Anxiety Hospital discharge follow-up Nonhealing skin ulcer Leg osteomyelitis, left Hypertension Positive colorectal cancer screening using Cologuard test Pure hypercholesterolemia Microalbuminuria Dysphagia Anemia Diabetic ulcer of right foot, limited to breakdown of skin Elevated blood pressure reading Controlled type 2 diabetes mellitus Amputated toe of right foot Diabetes Family History Mother Lung cancer Father Diabetes Congestive heart failure FHx: mental illness Dementia Colon polyp Social History (Updated 08/01/25 @ 16:03 by Tori Mehta MA) Housing: House Alcohol intake: never Patient Tobacco Use Status: Never used Tobacco Tobacco use type: Smokeless Tobacco e-Cigarette/Vaping Use: Never Used Second Hand Smoke Exposure: No service: No Current occupational status: employed 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 [employer] Current occupational exposures/hazards: No Cognitive needs: No Hearing needs: No Vision needs: No Physical Exam Exam Exam: Vital Signs: Last Vital Signs Pulse 96 09/16/25 13:59 BP 132/78 09/16/25 13:59 Pulse Ox 97 09/16/25 13:59 Assessment & Plan Assessment & Plan (1) Diabetic ulcer of right foot, limited to breakdown of skin: Code(s): E11.621 - Type 2 diabetes mellitus with foot ulcer; L97.511 - Non-pressure chronic ulcer of other part of right foot limited to breakdown of skin Category: Medical Qualifiers: Diabetic foot ulcer location: other Diabetes mellitus type: type 2 Q ualified Code(s): E11.621 - Type 2 diabetes mellitus with foot ulcer; L97.511 - Non-pressure chronic ulcer of other part of right foot limited to breakdown of skin Plan as above Coding Level of Care Code Est Pt Level 3 (42588) Diagnoses Diabetic ulcer of other part of right foot associated with type 2 diabetes mellitus, limited to breakdown of skin E11.621; L97.511 Diabetic foot ulcer location: other Diabetes mellitus type: type 2
[2025-09-16 13:59] VITALS: BP 132/78; PULSE 96; O2SAT 97
--- OUTSIDE RECORDS SUMMARY | 2025-09-16 15:52 | XMS_ITS | Clinical Summary ---
Author Organization 175 [facility] Address [address] [place] [address] Phone Care Team Providers Care Childcare Attendant Name Role Phone Keara Jon Primary Care Provider [phone] Encounters Date Type Department Care Team Description 07/08[facility]20[facility] [address] [address] Be Mariano MD 06/16/2025 Telephone [facility] 175 [facility] [address] [address] Be Mariano MD from Last 3 Months Surgical History Surgery Date Site/Laterality Comments TOE AMPUTATION 06/03/2023 Right PROCEDURE:TOE AMPUTATION;COMMENT:Procedure: PARTIAL 1ST RAY AMPUTATION, I AND D; Surgeon: Carmelo Pham DPM; Location: [facility] MAIN OPERATING ROOM; Service: Podiatry; Laterality: Right; FANNIE SAW, MINI C ARM, 10MIN OSTECTOMY 06/12/2023 Right PROCEDURE:OSTECTOMY METATARSAL;COMMENT:Procedure: OSTECTOMY METATARSAL; Surgeon: Carmelo Pham DPM; Location: [facility] MAIN [facility]PERATING RO[facility]; Service: Podiatry; Laterality: Right; SAG SAW, MINI C ARM, 15M Medical History Medical History Date Comments Diabetes mellitus (CMS/HCC V 24, CMS/HCC V28) 05/27/2023 DX:Diabetes mellitus (HCC) Seizures (CMS/HCC V24, CMS/HCC V28) DX:Seizures (HCC);COMMENT:06/09/23: over 12 years ago Visual impairment DX:Visual impa irment Diabetes mellitus, type II ( CMS/HCC V24, [facility] V28) DX:Diabetes mellitus, type I I (HCC) [...] this topic Medical Devices Implanted Type Area Computer Tape Librarian Device Identifier Shelf Expiration Date Model / Serial / Lot Hemostat Surg Ah Ana 3gm Crba-Davl [id number] Implanted:Qty: 1 on 06/03/2023 by Carmelo Pham DPM Implants Right: Foot CR BARD - DAVOL DIV 01/21/[address] / / [id number] Insurance [facility] Care Teams Childcare Attendant Relationship Specialty Start Date End Date Keara Jon PA [address] [place] [address] PCP - General Physician Bridge Crane Operator 06/16/25
--- OUTSIDE RECORDS SUMMARY | 2025-09-16 15:52 | XMS_ITS | Clinical Summary ---
Author Organization [facility] Address [address] [place] [address] Care Team Providers Care Sterilization Specialist Name Role Phone Ahmet Garcia MD Primary [...] Overview: Added automatically from request for surgery [id number] Osteomyelitis of great toe of right foot 023 Osteomyelitis 05/31/2023 Gangrene 05/30/2023 Overview: Added automatically from request for surgery [id number] Acute osteomyelitis of right ankle or foot 05/30 Overview: Added automatically from request for surgery [id number] Cellulitis of right foot 05/27/2023 Diabetes mellitus, [...] this topic Medical Devices Implanted Type Area Geothermal Operations Engineer Device Identifier Shelf Expiration Date Model / Serial / Lot Hemostat Surg Ah Ana 3gm Crba-Davl [id number] - [id number] Implanted:Qty : 1 on 06/03/2023 by Carmelo Pham DPM at [facility] and Med Hemostatic Agent Right: Foot CR BARD - DAVOL DIV 01/21/2028 [id number] / / [id number] Advance Directives For more information, please contact: [phone] Latest Code Status on File Code Status [...] following way: discussion with patient. Care Teams Sterilization Specialist Relationship Specialty Start Date End Date Ahmet Garcia MD PCP - General Family Medicine 06/12/23
== END 2025-09-16 14:26 | disposition home or self-care (01) ==
LOC: HO.HID 13:52
PROVIDERS: PCP Physician Assistant Medical; Visit Provider Internal Medicine
DX: E11.621 Type 2 diabetes mellitus with foot ulcer (principal); L97.511 Non-pressure chronic ulcer of other part of right foot limited to breakdown of skin
CPT/HCPCS: 99213

== ENCOUNTER 2025-10-06 11:54 | Outpatient (REF) | payer BC, SELFPAY ==
--- NOTE | ~2025-10-06 | CT_ITS ---
EXAMINATION: CT ABDOMEN AND PELVIS WITH CONTRAST CLINICAL INFORMATION: Abnormal weight loss COMPARISON: None available. TECHNIQUE: Multidetector volumetric images were obtained from the superior aspect of the liver through the pubic symphysis following administration 85 mL of Omnipaque 350 intravenous contrast. Sagittal and coronal reformatted images were obtained on the technologist's workstation. Oral contrast: No This CT examination was performed using dose optimization techniques as appropriate, variously including the following: *Automated exposure control *Adjustment of mA and/or kV according to patient size (this includes techniques or standardized protocols for targeted exams where dose is matched to indication/reason for exam; i.e. extremities or head) *Use of iterative reconstruction technique FINDINGS: LUNG BASES: The lung bases are clear. The heart size is normal. LIVER, GALLBLADDER, AND BILIARY TREE: The liver is normal in size, shape, and attenuation. No focal hepatic lesion or biliary ductal dilatation is present. The gallbladder is unremarkable with no evidence of radiopaque gallstones, gallbladder wall thickening, or obvious pericholecystic inflammatory changes. PANCREAS: Unremarkable. SPLEEN: Unremarkable. ADRENAL GLANDS: Unremarkable. KIDNEYS AND URETERS: The kidneys are normal in size, shape, and attenuation. No hydronephrosis, hydroureter, or calculi seen. No perinephric stranding. BLADDER: Unremarkable. GASTROINTESTINAL TRACT: There is scattered stool, diverticuli and gas seen throughout the colon without distention. Contrast opacified small bowel loops are normal caliber. The stomach is distended with recently ingested food No free air or free fluid seen. No inflammatory process seen in the abdomen or pelvis. ABDOMINAL WALL: No significant hernia is appreciated. LYMPH NODES: Normal. VASCULAR: Unremarkable. PELVIC VISCERA: The prostate gland is mildly enlarged with central gland calcification.. OSSEOUS STRUCTURES: No aggressive lytic or sclerotic process seen. There is mild degenerative disc changes L5-S1 disc level with ventral and posterior spondylosis. CT/CT abdomen pelvis w IV con IMPRESSION: No acute intra-abdominal process seen. Moderate constipation. Fleischner guidelines were followed. Electronically signed by: Ranjith Greene MD 10/06/2025 03:04 PM [facility]
[2025-10-06] MEDS: Barium Sulfate Oral (Vanilla) 450 ML ORAL.SUSP 900 ML PO (13:46)
[2025-10-06] MEDS: iohexoL 350 MG/ML 100 ML INFUS..BTL 85 ML IV (14:46)
--- OUTSIDE RECORDS SUMMARY | 2025-10-06 15:05 | XMS_ITS | Clinical Summary ---
Author Organization 175 [facility] Address [address] [place] [address] Phone Care Team Providers Care Or Manager Name Role Phone Keara Jon Primary Care Provider [phone] Encounters Date Type Department Care Team Description 09/20/2025 Lab Requisition [facility] - Main Lab [address] [facility] [place] [address] Ana Cole MD Other acute osteomyelitis, left ankle and foot (CMS/HCC V24, CMS/HCC V28); Osteomyelitis, unspecified (CMS/HCC V24, CMS/HCC V28); Type 2 diabetes mellitus with foot ulcer (CODE) (CMS/HCC V24, CMS/HCC V28) 07/08/2025 Telephone [facility] [place] [address] [place] [address] Be Mariano MD from Last 3 Months Surgical History Surgery Date Site/Laterality Comments TOE AMPUTATION 06/03/2023 Right PROCEDURE:TOE AMPUTATION;COMMENT:Procedure: PARTIAL 1ST RAY AMPUTATION, I AND D; Surgeon: Carmelo Pham DPM; Location: [facility] MAIN OPERATING ROOM; Service: Podiatry; Laterality: Right; FANNIE SAW, MINI C ARM, 10MIN OSTECTOMY 06/12/2023 Right PROCEDURE:OSTECTOMY METATARSAL;COMMENT:Procedure: OSTECTOMY METATARSAL; Surgeon: Carmelo Pham DPM; Location: [facility] MAIN OPERATING ROOM; Service: Podiatry; Laterality: Right; SAG SAW, MINI C ARM, 15M Medical History Medical History Date Comments Diabetes mellitus (CMS/[facility] V 24, [facility] V28) 05/27/2023 DX:Diabetes mellitus (HCC) Seizures (CMS/HCC V24, CMS/[facility] V28) DX:Seizures (HCC);COMMENT:06/09/23: over 12 years ago Visual impairment DX:Visual impa irment Diabetes mellitus, type II ( CMS/HCC V24, CMS/[facility] V28) DX:Diabetes mellitus, type I I [...] 1989 Pneumococcal Vaccine: 50+ Years (1 of 2 - PCV) 1989 Zoster Vaccines (1 of 2) 2020 HIV [...] Vaccine (#1) 2025 Cholesterol Screening (Lipid Panel) 01/21/20294, 01/22/2024, 07/31/2023 RSV Immunization Adult Patients (1 [...] this topic Medical Devices Implanted Type Area Marble Chip Terrazzo Worker Device Identifier Shelf Expiration Date Model / Serial / Lot Hemostat Surg Ah Ana 3gm Crba-Davl [id number] Implanted:Qty: 1 on 06/03/2023 by Carmelo Pham DPM Implants Right: Foot CR BARD - DAVOL DIV 01/21/[address] / / [id number] Procedures Procedure Name Priority Date/Time Associated Diagnosis Comments CREATINE KINASE Routine 09/20/2025 12:00 AM EDT Other acute osteomyelitis, left ankle and foot ([facility] V24, [facility] V28) Osteomyelitis, unspecified ([facility] V24, [facility] V28) Type 2 diabetes mellitus with foot ulcer (CODE) ([facility] V24, [facility] V28) from Last 3 Months Results * Creatine kinase (09/20/2025 12:00 AM EDT) Total CK 75 22 - 269 unit/L LAB CHEMISTRY METHOD 09/20/2025 6:12 PM EDT [facility] Blood Venous blood specimen / Unknown 09/20/2025 09/20/2025 5:23 PM EDT us Ana Cole MD LAB BLOOD ORDERABLES Final Result [facility] [address] [place] [address], [place] [phone] from Last 3 Months Insurance [facility] Care Teams Or Manager Relationship Specialty Start Date End Date Keara Jon PA [address] [place] [address] PCP - General Physician Compressor Operator Adjuster 06/16/25
--- OUTSIDE RECORDS SUMMARY | 2025-10-06 15:05 | XMS_ITS | Encounter Summary ---
Author Organization [facility] Address [address] [place] [address] Care Team Providers Care Calender Machine Operator Helper Name Role Phone Keara Jon Primary Care Provider [phone] Encounter Details Date Type Department Care Team ([facility] st Contact Info) Description 09/20/2025 Lab Requisition [facility] - Main Lab 299 [facility] [place] [address] Ana Cole MD [address] [place] [id number] Other acute osteomyelitis, left ankle and foot (CMS/HCC V24, CMS/HCC V28); Osteomyelitis, unspecified (CMS/HCC V24, CMS/HCC V28); Type 2 diabetes mellitus with foot ulcer (CODE) (CMS/HCC V24, CMS/HCC V28) Social History Tobacco Use Types Packs/Day Years [...] on file documented as of this encounter Plan of Treatment Not on file documented as of this encounter Procedures Procedure Name Priority Date/Time Associated Diagnosis Comments CREATINE KINASE Routine 09/20/2025 12:00 AM EDT Other acute osteomyelitis, left ankle and foot (CMS/HCC V24, CMS/HCC V28) Osteomyelitis, unspecified (CMS/HCC V24, CMS/HCC V28) Type 2 diabetes mellitus with foot ulcer (CODE) (CMS/HCC V24, CMS/HCC V28) documented in this encounter Results * Creatine kinase (09/20/2025 12:00 AM EDT) Total CK 75 22 - 269 unit/L LAB CHEMISTRY METHOD 09/20/2025 6:12 PM EDT [facility] Blood Venous blood specimen / Unknown 09/20/2025 09/20/2025 5:23 PM EDT us Ana Cole MD LAB BLOOD ORDERABLES Final Result [facility] [address] [place] [address], documented in this encounter Visit Diagnoses Diagnosis Other acute osteomyelitis, left ankle and foot ([facility] V24, [facility] V28) Osteomyelitis, unspecified ([facility] V24, [facility] V28) Type 2 diabetes mellitus with foot ulcer (CODE) ([facility] V24, [facility] V28) documented in this encounter Care Teams Calender Machine Operator Helper Relationship Specialty Start Date End Date Keara Jon PA [address] [place] [address] PCP - General Physician Cattle Care Worker 06/16/25 documented as of this encounter
--- OUTSIDE RECORDS SUMMARY | 2025-10-06 15:05 | XMS_ITS | Clinical Summary ---
Author Organization [facility] Address [address] [place] [address] Care Team Providers Care Gis Analyst Developer Name Role Phone Ahmet Garcia MD Primary [...] Overview: Added automatically from request for surgery [id number] Osteomyelitis of great toe of right foot 023 Osteomyelitis 05/31/2023 Gangrene 05/30/2023 Overview: Added automatically from request for surgery [id number] Acute osteomyelitis of right ankle or foot 05/30 Overview: Added automatically from request for surgery [id number] Cellulitis of right foot 05/27/2023 Diabetes mellitus, [...] this topic Medical Devices Implanted Type Area Child Care Education Coordinator Device Identifier Shelf Expiration Date Model / Serial / Lot Hemostat Surg Ah Ana 3gm Crba-Davl [id number] - [id number] Implanted:Qty : 1 on 06/03/2023 by Carmelo Pham DPM at [facility] and Med Hemostatic Agent Right: Foot CR BARD - DAVOL DIV 01/21/2028 [id number] / / [id number] Advance Directives For more information, please contact: [phone] Latest Code Status on File Code Status [...] following way: discussion with patient. Care Teams Gis Analyst Developer Relationship Specialty Start Date End Date Ahmet Garcia MD PCP - General Family Medicine 06/12/23
[2025-10-06 15:55] LABS: Creatinine POC 0.8 mg/dL (0.5-1.4); GFR POC > 60
== END 2025-10-06 11:55 | disposition home or self-care (01) ==
LOC: HO.CT 11:54
PROVIDERS: PCP Physician Assistant Medical; Visit Provider Physician Assistant Medical
DX: R63.4 Abnormal weight loss (principal); R19.5 Other fecal abnormalities; D50.9 Iron deficiency anemia, unspecified
CPT/HCPCS: 74177; 82565; Q9967

== ENCOUNTER → 2025-10-06 11:56 | Outpatient (BNV) | payer BC, SELFPAY | PROVIDERS: PCP Physician Assistant Medical; Visit Provider Radiology Diagnostic Radiology | DX: R63.4 Abnormal weight loss (principal) | CPT/HCPCS: 74177 ==

== ENCOUNTER 2025-10-07 11:06 | Outpatient (AMB) | payer BC, SELFPAY ==
[2025-10-07 11:44] VITALS: BP 132/70; PULSE 90; O2SAT 94
--- NOTE | 2025-10-07 11:44 | A.OFFVIS_ITS ---
Vital Signs 3 10/07/25 11:44 BP 132/70 Pulse 90 Pulse Oximetry (%) 94 Intake Visit Reasons: osteomyelitis F/U Allergies Penicillins Allergy (Verified 10/07/25 11:45) Rash lisinopril Adverse Reaction (Intermediate, Verified 10/07/25 11:45) Cough HPI Comments Details: History of Present Illness The patient is a 55-year-old male presenting with a foot infection. The primary issue is an open ulcer located on the lateral area of the foot near the fifth metatarsophalangeal joint. Currently, the ulcer shows no signs of exudate or purulence and is reportedly healing well. The patient had previously undergone initiation of intravenous antibiotic therapy, which is ongoing for a prescribed course of six weeks. The patient's past medical history is significant for depression. There is no report of current psychiatric symptoms during this visit. Review of Systems - General: Denies any complaints at this time - Integumentary: Denies exudate or purulence from foot ulcer - Psychological: Depression is acknowledged Physical Exam - Vital Signs- Stable - General- No significant distress noted - Oropharynx- Clear - Respiratory- Lungs clear to auscultation - Cardiovascular- Heart rhythm regular - Abdomen- Soft, non-tender - Extremities- Open ulcer on lateral area of the foot near the fifth metatarsophalangeal joint, no exudate or purulence Results Plan Patient was informed and verbally consented to the use of an ambient scribe for clinic note documentation during this visit. 1. Foot Ulcer The ulcer is under management with intravenous antibiotics, prescribed for a duration of six weeks, to address infection and promote healing. Follow-up is necessary to assess progress. 2. Depression Acknowledged history of depression with no current therapeutic interventions discussed during this visit. Psychological monitoring will continue. 3. Osteomyelitis, unspecified M86.9 HCC 39 Suspected underlying osteomyelitis is addressed with the current antibiotic regimen. Further evaluation will take place in follow-up appointments. Discussion Notes I reviewed the patient's current condition and explained the necessity of continuing the intravenous antibiotics to manage the foot ulcer and associated osteomyelitis effectively. We discussed the importance of completing the entire course of antibiotics to prevent complications. I reinforced the need for regular follow-up visits to monitor healing and adjust treatment accordingly. The patient agreed to ongoing evaluations and therapy. Medical Decision Making The decision to continue intravenous antibiotics for the patient's foot ulcer is based on the suspected diagnosis of underlying osteomyelitis. Maintaining the integrity of the foot and preventing further infection progression are critical treatment goals. The regular monitoring of the ulcer's status and the absence of exudate or purulence suggest that the treatment is effective so far. Continuous observation and reassessment during follow-up visits will guide any adjustments in the management plan to ensure optimal recovery. Patient Instructions - Continue taking intravenous antibiotics as prescribed for the full six-week course. - Attend all scheduled follow-up appointments for evaluation of your foot ulcer. - Report any new symptoms such as increased pain, redness, swelling, or discharge from the ulcer site immediately. - Maintain good foot hygiene and wound care as directed by healthcare providers. - Keep track of any changes in mood or psychological state. [facility] Medical History (Updated 09/22/25 @ 08:31 by RONALD Roberson) Weight loss Microhematuria Anxiety Hospital discharge follow-up Nonhealing skin ulcer Leg osteomyelitis, left Hypertension Positive colorectal cancer screening using Cologuard test Pure hypercholesterolemia Microalbuminuria Dysphagia Anemia Diabetic ulcer of right foot, limited to breakdown of skin Elevated blood pressure reading Controlled type 2 diabetes mellitus Amputated toe of right foot Diabetes Family History Mother Lung cancer Father Diabetes Congestive heart failure FHx: mental illness Dementia Colon polyp Social History (Updated 08/01/25 @ 16:03 by Tori Mehta MA) Housing: House Alcohol intake: never Patient Tobacco Use Status: Never used Tobacco Tobacco use type: Smokeless Tobacco e-Cigarette/Vaping Use: Never Used Second Hand Smoke Exposure: No service: No Current occupational status: employed 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 [employer] Current occupational exposures/hazards: No Cognitive needs: No Hearing needs: No Vision needs: No Physical Exam Vital Signs: Last Vital Signs Pulse 90 10/07/25 11:44 BP 132/70 10/07/25 11:44 Pulse Ox 94 10/07/25 11:44 Assessment & Plan Assessment & Plan (1) Leg osteomyelitis, left: Code(s): M86.9 - Osteomyelitis, unspecified Category: Medical Plan: as above (2) Controlled type 2 diabetes mellitus: Code(s): E11.9 - Type 2 diabetes mellitus without complications Category: Medical Plan: as above Orders: Orders 2 IR cvc remove any age Today M86.9 - Osteomyelitis, unspecified Medications: New 2 doxycycline hyclate 100 mg PO BID 60 caps 0RF 30 days Coding Level of Care Code Est Pt Level 3 (45039) Diagnoses Leg osteomyelitis, left M86.9 Controlled type 2 diabetes mellitus E11.9
== END 2025-10-07 12:49 | disposition home or self-care (01) ==
LOC: HO.HID 11:06
PROVIDERS: PCP Physician Assistant Medical; Visit Provider Internal Medicine
DX: M86.9 Osteomyelitis, unspecified (principal); E11.9 Type 2 diabetes mellitus without complications
CPT/HCPCS: 99213

== ENCOUNTER 2025-10-17 10:31 | Outpatient (REF) | payer BC, SELFPAY ==
[2025-10-17 14:25] LABS: Appearance Urine Clear; Glucose Urine UA Negative (Negative); PH 5.0 (5.0-9.0); Specific Gravity - Urine 1.020 (1.005-1.025); UMIC TRIGGER UA YES
[2025-10-17 14:27] LABS: MANUAL DIFF FLAG NO
[2025-10-17 14:38] LABS: Hematocrit 31.8 % (42.0-52.0); Hemoglobin 10.1 g/dl (14.0-18.0); Imm Gran Abs Auto 0.02 X10*3/uL (0.00-0.03); Imm Gran Pct Auto 0.3 % (0.0-0.4); Lymphocytes Absolute Auto 2.0 X10*3/uL (1.2-4.9); Mean Corpuscular HGB Conc 31.8 g/dl (31.0-36.0); Mean Corpuscular Hemoglobin 30.3 pg (27.0-33.0); Mean Corpuscular Volume 95.5 fL (80.0-98.0); NRBC Abs Auto 0.000 X10*3/uL (0.0-0.012); NRBC Pct Auto 0.0 /100WBC (0.0-0.2); Platelet Count 294 X10*3/uL (160-400); Red Blood Count 3.33 X10*6/uL (4.60-5.80); White Blood Count 7.9 X10*3/uL (4.8-10.8)
[2025-10-17 15:15] LABS: Erythrocyte Sedimentation Rate 40 MM/HR (0-15)
--- OUTSIDE RECORDS SUMMARY | 2025-10-17 15:36 | XMS_ITS | Clinical Summary ---
Author Organization [facility] Address [address] [place] [address] Care Team Providers Care Top Trimmer Name Role Phone Ahmet Garcia MD Primary [...] twice a day 100 each 06/05/2023 Active Lancets (freestyle) lancets Check your [...] Overview: Added automatically from request for surgery [id number] Osteomyelitis of great toe of right foot 023 Osteomyelitis 05/31/2023 Gangrene 05/30/2023 Overview: Added automatically from request for surgery [id number] Acute osteomyelitis of right ankle or foot 05/30 Overview: Added automatically from request for surgery [id number] Cellulitis of right foot 05/27/2023 Diabetes mellitus, [...] this topic Medical Devices Implanted Type Area Machine Strap Buckler Device Identifier Shelf Expiration Date Model / Serial / Lot Hemostat Surg Ah Ana 3gm Crba-[id number] - [id number] Implanted:Qty : 1 on 06/03/2023 by Carmelo Pham DPM at [facility] [place] [facility] Hemostatic Agent Right: Foot CR BARD - DAVOL DIV 01/21/2028 [id number] / / [id number] Advance Directives For more information, please contact: [phone] Latest Code Status on File Code Status [...] following way: discussion with patient. Care Teams Top Trimmer Relationship Specialty Start Date End Date Ahmet Garcia MD PCP - General Family Medicine 06/12/23
--- OUTSIDE RECORDS SUMMARY | 2025-10-17 15:36 | XMS_ITS | Encounter Summary ---
Author Organization [facility] Address [address] [place] [address] Care Team Providers Care Production Reproduction Manager Name Role Phone Keara Jon Primary Care Provider [phone] Encounter Details Date Type Department Care Team ([facility] st Contact Info) Description 09/20/2025 Lab Requisition [facility] - Main Lab [address] [facility] [place] [address] Ana Cole MD [address] [place] [id number] Other acute osteomyelitis, left ankle and foot [...] LAB CHEMISTRY METHOD 09/20/2025 6:12 PM EDT [facility] Blood Venous blood specimen / Unknown 09/20/2025 09/20/2025 5:23 PM EDT us Ana Cole MD LAB BLOOD ORDERABLES Final Result [facility] [address] [place] [address], documented in this encounter Visit Diagnoses Diagnosis Other acute osteomyelitis, left ankle and foot ([facility] V24, [facility] V28) Osteomyelitis, unspecified ([facility] V24, [facility] V28) Type 2 diabetes mellitus with foot ulcer (CODE) ([facility] V24, [facility] V28) documented in this encounter Care Teams Production Reproduction Manager Relationship Specialty Start Date End Date Keara Jon PA [address] [place] [address] PCP - General Physician Physician Relations Specialist 06/16/25 documented as of this encounter
--- OUTSIDE RECORDS SUMMARY | 2025-10-17 15:36 | XMS_ITS | Clinical Summary ---
Author Organization [address] [facility] Address [address] [place] [address] Phone Care Team Providers Care Hand Developer Name Role Phone Keara Jon Primary Care Provider [phone] Encounters Date Type Department Care Team Description 09/20/2025 Lab Requisition [facility] - Main Lab [address] [place] [address] Ana Cole MD Other acute osteomyelitis, left ankle and foot ([facility] V24, [facility] V28); Osteomyelitis, unspecified ([facility] V24, [facility] V28); Type 2 diabetes mellitus with foot ulcer (CODE) ([facility] V24, [facility] V28) from Last 3 Months Surgical History Surgery Date Site/Laterality Comments TOE AMPUTATION 06/03/2023 Right PROCEDURE:TOE AMPUTATION;COMMENT:Procedure: PARTIAL 1ST RAY AMPUTATION, I AND D; Surgeon: Carmelo Pham DPM; Location: [facility] MAIN OPERATING ROOM; Service: Podiatry; Laterality: Right; SAG SAW, MINI C ARM, 10MIN OSTECTOMY 06/12/2023 Right PROCEDURE:OSTECTOMY METATARSAL;COMMENT:Procedure: OSTECTOMY METATARSAL; Surgeon: Carmelo Pham DPM; Location: [facility] MAIN OPERATING ROOM; Service: Podiatry; Laterality: Right; SAG SAW, MINI C ARM, 15M Medical History Medical History Date Comments Diabetes mellitus (CMS/HCC V 24, [facility] V28) 05/27/2023 DX:Diabetes mellitus (HCC) Seizures (CMS/[facility] V24, [facility] V28) DX:Seizures (HCC);COMMENT:06/09/23: over 12 years [...] Additional history exists COVID-19 Vaccine ( - 2024- season) 2025 Influenza Vaccine (#1) 2025 Cholesterol [...] this topic Medical Devices Implanted Type Area Training Director Device Identifier Shelf Expiration Date Model / Serial / Lot Hemostat Surg Ah Ana 3gm Crba-Davl [id number] Implanted:Qty: 1 on 06/03/2023 by Carmelo Pham DPM Implants Right: Foot [employer] 01/21/[address] / / [id number] Procedures Procedure Name Priority Date/Time Associated Diagnosis Comments CREATINE KINASE Routine 09/20/2025 12:00 AM EDT Other acute osteomyelitis, left ankle and foot ([facility] V24, [facility] V28) Osteomyelitis, unspecified ([facility] V24, [facility] V28) Type 2 diabetes mellitus with foot ulcer (CODE) ([facility] V24, [facility] V28) from Last 3 Months Results * Creatine kinase (09/20/2025 12:00 AM EDT) Total CK 75 22 - 269 unit/L LAB CHEMISTRY METHOD 09/20/2025 6:12 PM EDT [facility] Blood Venous blood specimen / Unknown 09/20/2025 09/20/2025 5:23 PM EDT us Ana Cole MD LAB BLOOD ORDERABLES Final Result [facility] [address] [place] [address], from Last 3 Months Insurance [employer] Care Teams Hand Developer Relationship Specialty Start Date End Date Keara Jon PA [address] [place] [id number] PCP - General Physician Tire Shop Manager 06/16/25
[2025-10-17 16:34] LABS: Anion Gap 11 (12-20); Blood Urea Nitrogen 34 mg/dL (9-16); Calcium 9.6 mg/dL (8.4-10.2); Carbon Dioxide 25 mmol/L (22-29); Chloride 109 mmol/L (96-108); Cholesterol 86 mg/dL (<200); Estimated Glomerular Filt Rate 42; Ferritin 165 ng/mL (20-250); HDL Cholesterol 44 mg/dL (>40); Iron 75 mcg/dL (45-160); Percent Iron Saturation 34 % (15-50); Potassium 4.8 mmol/L (3.3-5.1); Sodium 140 mmol/L (135-145); Total Iron Binding Capacity 219 mcg/dL (228-428); Triglycerides 55 mg/dL (<150); Unsaturated Iron Binding 144 ug/dL
== END 2025-10-17 10:32 | disposition home or self-care (01) ==
LOC: HO.WFDLDS 10:31
PROVIDERS: PCP Physician Assistant Medical; Visit Provider Physician Assistant Medical
DX: E11.621 Type 2 diabetes mellitus with foot ulcer (principal); L97.511 Non-pressure chronic ulcer of other part of right foot limited to breakdown of skin; R80.9 Proteinuria, unspecified; R39.9 Unspecified symptoms and signs involving the genitourinary system; D64.9 Anemia, unspecified; R31.29 Other microscopic hematuria; I10 Essential (primary) hypertension; M86.9 Osteomyelitis, unspecified; D50.9 Iron deficiency anemia, unspecified; R19.5 Other fecal abnormalities; E78.00 Pure hypercholesterolemia, unspecified; F41.9 Anxiety disorder, unspecified; Z79.899 Other long term (current) drug therapy
CPT/HCPCS: 36415; 80048; 80061; 81001; 82728; 83036; 83540; 85025; 85652; 87086

== ENCOUNTER 2025-10-17 10:31 | Outpatient (AMB) | payer BC, SELFPAY ==
--- NOTE | 2025-10-17 10:41 | A.OFFPC_ITS ---
Vital Signs 10/17/25 10:45 Height 5 ft 10 in Weight 135 lb 6 oz BMI 19.4 BP 116/62 Blood Pressure Location Rt brachial Position Sitting Respiration 16 Pulse 97 Pulse Source Pulse Oximeter Temp 97.9 F Temp Source Temporal Artery Scan Pulse Oximetry (%) 97 Oxygen Delivery Method Room Air Intake Visit Reasons: 30 minutes wounds, and diabetes Intake Note: Abraham presents in the office today for a follow up to diabetes. Allergies Penicillins Allergy (Verified 10/17/25 10:42) Rash lisinopril Adverse Reaction (Intermediate, Verified 10/17/25 10:42) Cough Tobacco use date assessed: 10/17/25 Dental Screening Dental Screen Date: 10/17/25 Did you have a dental visit in the last 12 months?: No Did you have a dental problem in the last 6 months where you did not have access to dental care?: No Was dental information given to patient?: Patient has dentist HPI HPI Comments History of Present Illness Details This is a 55 year old male with a pmhx of Type II Diabetes, status post amputation of the right big toe in 2022 anemia, hypertension, positive Cologuard, osteomyelitis of the left foot presenting for follow up. He is accompanied by his , Michaelle. Patient was hospitalized in August at [facility] due to cellulitis and osteomyelitis of the left foot. ID and surgery were consulted. He was initially treated with vancomycin and Zosyn and discharged on daptomycin for a 6 week course. He had this completed recently, and the PICC line was removed. He saw Dr. Cole for follow up on 09/06/2025 who recommended an additional 30 day course of doxycycline which he is taking. Diabetes well-controlled with hemoglobin A1c of 5.9%. MARCO A ultrasound is scheduled. He has some pain, but he does not require medication. He is sleeping well. There was discussion with wound care about hyperbaric oxygen, but the patient says his leave from work will be ending soon. He tells me that Hyperbaric oxygen chamber would either be at 08:00 or 13:00 every day for 6 weeks. It has not been approved by insurance at this point. Patient has also been evaluated for anemia with positive Cologuard and saw Gastroenterology and was scheduled for colonoscopy. Denies abdominal pain, stool changes, vomiting, blood in stools. Interval weight loss with hospitalization. Colonoscopy was then deferred until completion of antibiotics. He had a CAT scan of the abdomen and pelvis with contrast on 10/06/2025 demonstrating no evidence of malignancy or significant abnormal findings. Denies bleeding or bruising. Patient had microscopic hematuria with 11 RBCs per high-power field while hospitalized. Also had trace ketones and 2+ albumin and trace glucose. Repeat urinalysis and culture are pending. His colonoscopy is being rescheduled until after he completes antibiotics. He is seeing Wound Care once a week. Next appointment is 09/13/2025. He had chronic ulcers on the right foot which he says are nearly healed. The ulcer on the left foot is reportedly also getting smaller. He is using diabetic slippers. He was referred to Podiatry, but he has not heard about scheduling this appointment yet. Hypertension was being treated with losartan, and this is now well-controlled. He also started treating anxiety and depression with sertraline which has helped reduce his anxiety symptoms significantly. He is not interested in therapy right now. Patient has gained back some weight. Appetite returned after stopping IV antibiotics. Type II DM-taking Mounjaro 2.5 mg. Hemoglobin A1c 5.9%. Previously on Lantus which was discontinued once he started the GLP 1. He was diagnosed after being hospitalized at [facility] for 13 days due to ?bacteremia in the setting of a right great toe infection after cutting his foot on glass. His A1C at diagnosis was 11.6%. His father had Type II DM. Patient reports he was tested for Type I DM, and this evaluation was negative. Denies hypoglycemia. He is a nonsmoker and doesn't drink alcohol. Complications: neuropathy in his feet, but he still has feeling. He had an eye exam, and is was recommended that he see a retinal specialist for evaluation. Patient has microalbuminuria. He was started on rosuvastatin for hyperlipidemia. Anemia-found incidentally on blood work. He is taking an iron supplement. Reported 20 year history of dysphagia with starchy foods at his initial visit. He has never had an EGD, and he was due for colonoscopy. Denied progressively worsening dysphagia, regurgitation, weight loss, nausea or vomiting. Endorses chronic cough after eating. Subsequently patient has positive Cologuard testing, and he was referred urgently to Gastroenterology. ROS: Constitutional: +fatigue. Patient has had weight loss, but he has gained some of his weight back. No fevers, chills or night sweats. Eyes: No vision changes, blurry vision, double vision Respiratory: No cough or sputum production. Cardiovascular: No chest pain Gastrointestinal: No anorexia, nausea, vomiting or diarrhea. No abdominal pain or blood in stool. No reflux. Genitourinary: No dysuria, hematuria, urinary frequency. No nocturia. Neurologic: No headache, dizziness, syncope, unilateral weakness, ataxia or seizures. Endocrine: No cold or heat intolerance. No polyuria or polydipsia. Physical exam: Constitutional: Alert, in no distress. Neck: Supple, Full range of motion. No lymphadenopathy. No palpable masses. Respiratory: Clear to auscultation. Cardiovascular: S1 S2 regular. No murmurs. Neurologic: No focal neurological deficits. Left foot: Intact DP pulse. No edema. The left 5th toe crosses over the top of the 4th toe. There is dry flaking skin. There is a stage III ulcer on the lateral aspect of the distal left foot with some slough at the center. There is no discharge or weeping. Psychiatric: Cooperative, maintains good eye contact [facility] Medical History (Updated 09/22/25 @ 08:31 by RONALD Roberson) Weight loss Microhematuria Anxiety Hospital discharge follow-up Nonhealing skin ulcer Leg osteomyelitis, left Hypertension Positive colorectal cancer screening using Cologuard test Pure hypercholesterolemia Microalbuminuria Dysphagia Anemia Diabetic ulcer of right foot, limited to breakdown of skin Elevated blood pressure reading Controlled type 2 diabetes mellitus Amputated toe of right foot Diabetes Family History Mother Lung cancer Father Diabetes Congestive heart failure FHx: mental illness Dementia Colon polyp Social History (Updated 10/17/25 @ 10:44 by Tori Mehta CMA) Housing: House Alcohol intake: never Patient Tobacco Use Status: Never used Tobacco Tobacco use type: Smokeless Tobacco e-Cigarette/Vaping Use: Never Used Second Hand Smoke Exposure: No service: No Current occupational status: employed 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 [employer] Current occupational exposures/hazards: No Cognitive needs: No Hearing needs: No Vision needs: No Questionnaire Thrive Questionnaire Date Thrive assessed: 06/02/25 I am a: Patient What is your living situation today?: I have a steady place to live Within the past 12 months, did the food you bought not last and you didn't have the money to get more?: Never true Within the past 12 months, did you worry whether your food would run out before you got money to buy more?: Never true Do you have trouble paying for medicines?: No Do you have trouble getting transportation to medical appointments?: No Do you have trouble paying your heating and electricity bill?: No Do you have trouble taking care of your child, family member or friend?: No Do you have trouble with day-to-day activities such as bathing, preparing meals, shopping, managing finances, etc.?: No Are you currently unemployed and looking for a job?: No Are you interested in more education?: No Please select the resources that you would like help with: None Currently or been in a relationship where the following occur: No concerns reported THRIVE Score: 0 MIRNA-7 AMB Questionnaire MIRNA-7 Date MIRNA - 7 assessed: 06/02/25 Source: Developed by Drs. Ahmet Perez, Ijeoma Ramos, Niko Nguyen and colleagues, with an educational madison from [employer] Physical exam (Primary Care) Vital Signs: Last Vital Signs Temp 97.9 F 10/17/25 10:45 Pulse 97 10/17/25 10:45 Resp 16 10/17/25 10:45 BP 116/62 10/17/25 10:45 Pulse Ox 97 10/17/25 10:45 Oxygen Delivery Method Room Air 10/17/25 10:45 BMI result Body Mass Index 19.4 Tobacco/Smoking Status: Tobacco use Status Tobacco use date assessed 10/17/25 10/17/25 10:47 Patient Tobacco Use Status Never used Tobacco 10/17/25 10:47 Tobacco use type Smokeless Tobacco 10/17/25 10:47 e-Cigarette/Vaping Use Never Used 10/17/25 10:47 Thrive Assessment: Date of Thrive Assessment Date Thrive assessed 06/02/25 10/17/25 10:47 Currently or been in a relationship where the following occur: No concerns re ported Results AMB Hemoglobin A1c AMB Hemoglobin A1c 5.9 % Last Edit by Tori Mehta CMA on 10/17/25 10:55 Results Reviewed Results Reviewed: Laboratory Last Values Hgb A1c (Clinic) 5.9 % (4.0-6.0) 10/17/25 10:54 Coding Level of Care Code Est Pt Level 5 (08370) Complex visit Add On G2211 Diagnoses Controlled type 2 diabetes mellitus E11.9 Diabetic ulcer of other part of right foot associated with type 2 diabetes mellitus, limited to breakdown of skin E11.621; L97.511 Diabetes mellitus type: type 2 Diabetic foot ulcer location: other Leg osteomyelitis, left M86.9 Iron deficiency anemia, unspecified iron deficiency anemia type D50.9 Anemia type: iron deficiency Iron deficiency anemia type: unspecified iron deficiency Positive colorectal cancer screening using Cologuard test R19.5 Pure hypercholesterolemia E78.00 Anxiety F41.9 Hypertension, unspecified type I10 Hypertension type: unspecified Microhematuria R31.29 Time Spent (min) 47 Comment Reviewing chart, direct patient care, completing documentation Assessment & Plan Assessment & Plan (1) Controlled type 2 diabetes mellitus: Code(s): E11.9 - Type 2 diabetes mellitus without complications Category: Medical Plan: Well-controlled with hemoglobin A1c 5.9% today. Discussed pathophysiology of Type II Diabetes Mellitus with the patient in detail.? 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 Continue diabetic diet. Patient has a CGM. He had 1 alert with a blood sugar of 62 within the last couple of weeks, but he had no symptoms. Advised patient if this happens again to check a fingerstick to confirm it if it is low to treat hypoglycemia. Continue Mounjaro 2.5 mg weekly. (2) Diabetic ulcer of right foot, limited to breakdown of skin: Code(s): E11.621 - Type 2 diabetes mellitus with foot ulcer; L97.511 - Non-pressure chronic ulcer of other part of right foot limited to breakdown of skin Category: Medical Qualifiers: Diabetes mellitus type: type 2 Diabetic foot ulcer location: other Qualified Code(s): E11.621 - Type 2 diabetes mellitus with foot ulcer; L97.511 - Non-pressure chronic ulcer of other part of right foot limited to breakdown of skin Plan: Patient is following with Wound Care and doing dressing changes as directed. He has diabetic slippers, and he did get a pair of diabetic boots for when he does return to work. Diabetes is well-controlled. He does not smoke. MARCO A is booked. (3) Leg osteomyelitis, left: Code(s): M86.9 - Osteomyelitis, unspecified Category: Medical Plan: Patient is following with Infectious Disease. He is on 30 days of doxycycline following 6 weeks of IV daptomycin. There is still ongoing discussion about hyperbaric oxygen chamber therapy with wound care. There are some questions they have about efficacy, medical necessity and whether or not insurance is going to cover this and just listed logistically if he is going to be able to attend these appointments because he will not have anymore leave time from his job. (4) Anemia: Code(s): D64.9 - Anemia, unspecified Category: Medical Qualifiers: Anemia type: iron deficiency Iron deficiency anemia type: unspecified iron deficiency Qualified Code(s): D50.9 - Iron deficiency anemia, unspecified Plan: Continue iron supplement and check labs. He is also on B12. Possibly anemia of chronic disease. CT scan of the abdomen and pelvis shows no evidence of malignancy, but he still needs to have colonoscopy completed because of the positive Cologuard. Today I also brought up seeing Heme-Onc for evaluation. We will have labs done today and refer based on those results. (5) Positive colorectal cancer screening using Cologuard test: Comment: positive Cologuard test on June 27, 2025. Code(s): R19.5 - Other fecal abnormalities Category: Medical Plan: The patient was seen by Gastroenterology, and colonoscopy is being rescheduled due to being on antibiotics to treat osteomyelitis and cellulitis. Continue iron supplement. Check labs. (6) Pure hypercholesterolemia: Code(s): E78.00 - Pure hypercholesterolemia, unspecified Category: Medical Plan: Recommended Mediterranean diet and continuing rosuvastatin. (7) Anxiety: Code(s): F41.9 - Anxiety disorder, unspecified Category: Medical Plan: He is doing much better. He would like to continue the current dose of sertraline 50 mg daily. (8) Hypertension: Code(s): I10 - Essential (primary) hypertension Category: Medical Qualifiers: Hypertension type: unspecified Qualified Code(s): I10 - Essential (primary) hypertension Plan: Continue losartan 75 mg daily. (9) Microhematuria: Code(s): R31.29 - Other microscopic hematuria Category: Medical Plan: Repeat urinalysis. Plan Follow up in 8 weeks. Orders: Orders AMB Hemoglobin A1c Today E11.9 - Type 2 diabetes mellitus without complications Medications: Changed From sertraline (Zoloft) Take 1/2 tab nightly for 1 week then increase to 1 tab daily. 50 mg PO DAILY 90 tabs 0RF To sertraline (Zoloft) 50 mg PO DAILY 90 tabs 3RF Refilled tirzepatide (Mounjaro) for 4 weeks 2.5 mg (0.5 mL) subcut QWEEK 2 mL 5RF
[2025-10-17 10:45] VITALS: BP 116/62; PULSE 97; RESP 16; TEMP 36.6; O2SAT 97; BMI 19.4
== END 2025-10-17 11:39 | disposition home or self-care (01) ==
LOC: HO.HMCFM 10:31
PROVIDERS: PCP Physician Assistant Medical; Visit Provider Physician Assistant Medical
DX: E11.621 Type 2 diabetes mellitus with foot ulcer (principal); L97.511 Non-pressure chronic ulcer of other part of right foot limited to breakdown of skin; M86.9 Osteomyelitis, unspecified; D50.9 Iron deficiency anemia, unspecified; R19.5 Other fecal abnormalities; E78.00 Pure hypercholesterolemia, unspecified; F41.9 Anxiety disorder, unspecified; I10 Essential (primary) hypertension; R31.29 Other microscopic hematuria

== ENCOUNTER 2025-11-07 10:27 | Outpatient (AMB) | payer BC, SELFPAY ==
[2025-11-07 10:46] VITALS: BP 118/70; PULSE 108; O2SAT 99
--- NOTE | 2025-11-07 10:46 | MHC.OFFVIS ---
Vital Signs 11/07/25 10:46 BP 118/70 Pulse 108 H Pulse Oximetry (%) 99 Intake Visit Reasons: 1 month follow foot wound Allergies Penicillins Allergy (Verified 11/07/25 10:47) Rash lisinopril Adverse Reaction (Intermediate, Verified 11/07/25 10:47) Cough HPI HPI 1 month follow foot wound: Details: He has been getting regular wound care Foot looks improved [facility] Medical History Weight loss Microhematuria Anxiety Hospital discharge follow-up Nonhealing skin ulcer Leg osteomyelitis, left Hypertension Positive colorectal cancer screening using Cologuard test Pure hypercholesterolemia Microalbuminuria Dysphagia Anemia Diabetic ulcer of right foot, limited to breakdown of skin Elevated blood pressure reading Controlled type 2 diabetes mellitus Amputated toe of right foot Diabetes Family History Mother Lung cancer Father Diabetes Congestive heart failure FHx: mental illness Dementia Colon polyp Social History Housing: House Alcohol intake: never Patient Tobacco Use Status: Never used Tobacco Tobacco use type: Smokeless Tobacco e-Cigarette/Vaping Use: Never Used Second Hand Smoke Exposure: No service: No Current occupational status: employed 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 [employer] Current occupational exposures/hazards: No Cognitive needs: No Hearing needs: No Vision needs: No Review of Systems Const All systems reviewed & are unremarkable except as noted in HPI and below Physical Exam Vital Signs: Last Vital Signs Pulse 108 H 11/07/25 10:46 BP 118/70 11/07/25 10:46 Pulse Ox 99 11/07/25 10:46 Const Other: General: cooperative Orientation/consciousness: patient oriented x3 HEENT Head: Yes normal to inspection Mouth: Normal oral and palatal mucosa present Eyes General: appearance normal, both eyes and all related structures Pupils: Equal, round and reactive pupils present Resp Effort & Inspection: normal respiratory effort Cardio Rate: regular rate Rhythm: regular rhythm GI Palpation (GI): Soft to palpation and nontender General: Yes no CVA tenderness Back/Spine/Pelvis Back: no CVA tenderness Skin General skin exam: no rashes or lesions noted Neuro General: patient oriented x3 Cranial nerves: Yes CN's II-XII intact bilaterally and Yes Equal, round and reactive pupils present Extrem Other: foot improved Psych Appearance: grossly normal Assessment & Plan Assessment & Plan (1) Diabetic ulcer of right foot, limited to breakdown of skin: Code(s): E11.621 - Type 2 diabetes mellitus with foot ulcer; L97.511 - Non-pressure chronic ulcer of other part of right foot limited to breakdown of skin Category: Medical Qualifiers: Diabetic foot ulcer location: other Diabetes mellitus type: type 2 Qualified Code(s): E11.621 - Type 2 diabetes mellitus with foot ulcer; L97.511 - Non-pressure chronic ulcer of other part of right foot limited to breakdown of skin (2) Leg osteomyelitis, left: Comment: His foot is improving Code(s): M86.9 - Osteomyelitis, unspecified Category: Medical Plan: Po Doxycycline for a month See in followup prn need Plan as above Coding Level of Care Code Est Pt Level 3 (61475) Diagnoses Diabetic ulcer of other part of right foot associated with type 2 diabetes mellitus, limited to breakdown of skin E11.621; L97.511 Diabetic foot ulcer location: other Diabetes mellitus type: type 2 Leg osteomyelitis, left M86.9
== END 2025-11-07 10:58 | disposition home or self-care (01) ==
LOC: HO.HID 10:27
PROVIDERS: PCP Physician Assistant Medical; Visit Provider Internal Medicine
DX: E11.621 Type 2 diabetes mellitus with foot ulcer (principal); L97.511 Non-pressure chronic ulcer of other part of right foot limited to breakdown of skin; M86.9 Osteomyelitis, unspecified
CPT/HCPCS: 99213